=== PATIENT | female | born 1960 | race Caucasian/White ===

== ENCOUNTER 2018-09-06 17:33 | Emergency (ER) | payer MEDICARE ==
[~2018-09-06] VITALS: Ht 10.2 cm; Wt 104.5 kg
[2018-09-06 17:37] VITALS: TEMP 98.2
[2018-09-06 18:25] LABS: ALBUMIN 2.8 gm/dL (3.5-5.0); BILIRUBIN,TOTAL 0.2 mg/dL (0.0-1.0); CALCIUM 8.7 mg/dL (8.4-10.2); CREATININE, serum 1.83 mg/dL (0.52-1.25); POTASSIUM 4.7 mmol/L (3.4-5.0); TOTAL PROTEIN 5.9 gm/dL (6.4-8.2)
[2018-09-06 18:27] LABS: BASO # 0.1 (0.0-0.2); BASO % 0.5 % (0.0-2.0); EOS # 0.7 (0.0-0.7); EOS % 7.3 % (0-4.0); GRAN # 5.8 (1.4-6.5); GRAN % 62.5 % (42.2-75.2); MEAN CELL VOLUME 85 fl (80.0-100.0); MEAN CORPUSCULAR HEMOGLOBIN 28 pg (27.0-31.0); MEAN CORPUSCULAR HGB CONC 32 g/dl (33.0-37.0); MEAN PLATELET VOLUME 10.3 fl (7.4-10.4); MONO # 0.7 (0.1-0.6); MONO % 7.3 % (1.7-9.3); PLATELET COUNT 288 K/mm3 (130-400); REDCELL DISTRIBUTION WIDTH-CV 13.5 % (11.5-14.5)
[2018-09-06 18:29] LABS: HEMATOCRIT 33.9 % (37.0-47.0)
[2018-09-06 18:38] LABS: TROPONIN-I 0.06 ng/mL (0.000-0.034)
[2018-09-06] MEDS ORDERED: LASIX 20MG TABL20 MG PO (20:36)
[2018-09-06] MEDS ORDERED: NEURONTIN300 MG/CAP PO (20:36)
[2018-09-06] MEDS ORDERED: MICRO-K 10 EXT10 MEQ PO (20:36)
[2018-09-06 20:39] VITALS: BP 154/94; PULSE 90
== END 2018-09-06 20:53 | disposition home or self-care (01) ==
LOC: COL.ER 17:33
PROVIDERS: Family Medicine
DX: E11.42 Type 2 diabetes mellitus with diabetic polyneuropathy (principal); R60.9 Edema, unspecified; I25.10 Atherosclerotic heart disease of native coronary artery without angina pectoris; I50.9 Heart failure, unspecified; F17.210 Nicotine dependence, cigarettes, uncomplicated
CPT/HCPCS: J1940

== ENCOUNTER → 2018-12-17 | Outpatient (CLI) | payer MEDICARE, MEDICAID ==
[~2018-12-17] MED LIST: ALBUTEROL1.25 MG/3 IH; ASPIRIN 81M81 MG/TA2 PO; BUMEX 1MG TA1 MG/TA1 PO; COREG 3.123.125 MG/T PO; DESYREL 50MG50 MG PO; DESYREL DIVIDO300 MG PO; DILAUDID8 M1 PO; GLUCOPHAGE1000 MG PO; LAMICTAL 25MG T25 MG PO; LANTUS100 U/ML SQ; LASIX 20MG TABL20 MG PO; LASIX 40MG TABL40 MG PO; LEVEMIR FLEX100 U/ML SQ; LEVEMIR100 U/ML SQ; LIPITOR 40MG TA40 MG PO; MICRO-K 10 EXT10 MEQ PO; MS CONTIN 660 MG/TAB PO; NEURONTIN100 MG/CAP PO; NEURONTIN300 MG/CAP PO; NEURONTIN800 MG/TAB PO; NITROSTAT0.3 MG SL; NOVOLOG 100U100 U/M1 SQ; NUMBONEX30 GM TP; PEPCID40 MG PO; PLAVIX 75MG TAB75 MG PO; PREDNISONE20 MG PO; PROAIR HFA0.09 MG/AC IH; PROTONIX 40MG T40 MG PO; PROZAC40 MG PO; RT SPIRIVA18 MCG IH; SINGULAIR 110 MG/TAB PO; SLEEPING MED; TAMIFLU30 MG PO; THE MEDICINE SH1 DE3 MC; XANAX 1MG1 MG PO
[2018-12-17 18:56] LABS: BASO % 0.5 % (0.0-2.0); EOS # 0.5 (0.0-0.7); EOS % 5.7 % (0-4.0); GRAN # 4.9 (1.4-6.5); GRAN % 62.1 % (42.2-75.2); HEMOGLOBIN 11.2 g/dl (12.5-16.0); LYMPH # 1.9 (1.2-3.4); LYMPH % 23.9 % (20.0-51.0); MEAN CELL VOLUME 86 fl (80.0-100.0); MEAN CORPUSCULAR HEMOGLOBIN 27 pg (27.0-31.0); MEAN CORPUSCULAR HGB CONC 31 g/dl (33.0-37.0); MEAN PLATELET VOLUME 10.6 fl (7.4-10.4); MONO # 0.6 (0.1-0.6); MONO % 7.5 % (1.7-9.3); PLATELET COUNT 267 K/mm3 (130-400); RED BLOOD COUNT 4.14 M/mm3 (4.10-5.30); REDCELL DISTRIBUTION WIDTH-CV 14.1 % (11.5-14.5); RETIC # 0.04 M/mm3 (0.02-0.16); RETIC % 1.1 % (0.5-3.52)
[2018-12-17 18:57] LABS: HEMATOCRIT 35.7 % (37.0-47.0)
[2018-12-17 19:06] LABS: CALCIUM 8.7 mg/dL (8.4-10.2); CREATININE, serum 2.06 mg/dL (0.52-1.25)
== END ==
LOC: COL.LAB 17:52
PROVIDERS: Nurse Practitioner Family
DX: D64.9 Anemia, unspecified (principal); N17.9 Acute kidney failure, unspecified

== ENCOUNTER → 2018-12-17 | Outpatient (CLI) | payer MEDICARE, MEDICAID | LOC: COL.LAB 17:50 | DX: D64.9 Anemia, unspecified (principal); I50.9 Heart failure, unspecified ==

== ENCOUNTER → 2018-12-25 | Outpatient (CLI) | payer MEDICARE, MEDICAID ==
[2018-12-26 13:28] LABS: FOLATE (FOLIC ACID) 3.7 ng/mL (7.0-31.4)
== END ==
LOC: COL.LAB 17:27
PROVIDERS: Family Medicine
DX: D64.9 Anemia, unspecified (principal)

== ENCOUNTER → 2018-12-28 | Outpatient (CLI) | payer MEDICARE, MEDICAID | LOC: COL.RAD 13:54 | DX: N18.3 Chronic kidney disease, stage 3 (moderate) (principal) ==

== ENCOUNTER → 2018-12-31 | Outpatient (CLI) | payer MEDICARE, MEDICAID ==
[~2018-12-31] MED LIST changes: +00186-0370-20 IH; +BUMEX2 MG PO; +FERRO-TIME325 MG PO; +FOLIC ACID 11 MG/TA1 PO
[2018-12-31 22:50] LABS: HEPATITIS C VIRUS ANTIBODY Negative (Negative)
== END ==
LOC: COL.LAB 09:02
PROVIDERS: Internal Medicine
DX: I12.9 Hypertensive chronic kidney disease with stage 1 through stage 4 chronic kidney disease, or unspecified chronic kidney disease (principal); E11.21 Type 2 diabetes mellitus with diabetic nephropathy; N18.3 Chronic kidney disease, stage 3 (moderate); D64.9 Anemia, unspecified

== ENCOUNTER 2019-01-03 20:05 | Inpatient (IN) | payer MEDICARE, MEDICAID ==
[~2019-01-03] VITALS: Ht 160 cm; Wt 97.7 kg
[~2019-01-03 20:05] MED LIST changes: -00186-0370-20 IH; -BUMEX2 MG PO; -FERRO-TIME325 MG PO; -FOLIC ACID 11 MG/TA1 PO
[2019-01-03 21:37] LABS: BASO % 0.5 % (0.0-2.0); EOS # 0.5 (0.0-0.7); EOS % 5.5 % (0-4.0); GRAN # 5.6 (1.4-6.5); GRAN % 65.2 % (42.2-75.2); HEMOGLOBIN 10.2 g/dl (12.5-16.0); LYMPH # 1.6 (1.2-3.4); LYMPH % 18.8 % (20.0-51.0); MEAN CELL VOLUME 86 fl (80.0-100.0); MEAN CORPUSCULAR HEMOGLOBIN 28 pg (27.0-31.0); MEAN CORPUSCULAR HGB CONC 33 g/dl (33.0-37.0); MEAN PLATELET VOLUME 10.4 fl (7.4-10.4); MONO # 0.8 (0.1-0.6); MONO % 9.5 % (1.7-9.3); PLATELET COUNT 275 K/mm3 (130-400); RED BLOOD COUNT 3.65 M/mm3 (4.10-5.30); REDCELL DISTRIBUTION WIDTH-CV 14.2 % (11.5-14.5)
[2019-01-03 21:40] LABS: HEMATOCRIT 31.3 % (37.0-47.0)
[2019-01-03] MEDS ORDERED: BUMEX2 MG PO (21:48)
[2019-01-03 21:50] LABS: ALANINE AMINOTRANSFERASE 20 U/L (9-52); ALBUMIN 2.7 gm/dL (3.5-5.0); ALKALINE PHOSPHATASE 97 U/L (50-136); ANION GAP 3 mmol/L (7-16); AST,SGOT 23 U/L (15-37); BILIRUBIN,TOTAL 0.1 mg/dL (0.0-1.0); BLOOD UREA NITROGEN 34 mg/dL (7-17); CALCIUM 8.2 mg/dL (8.4-10.2); CARBON DIOXIDE 23 mmol/L (22-30); CHLORIDE 110 mmol/L (98-107); CREATININE, serum 2.17 (0.52-1.25); GLUCOSE 176 mg/dL (74-106); POTASSIUM 4.6 mmol/L (3.4-5.0); SODIUM 135 mmol/L (137-145); TOTAL PROTEIN 5.5 gm/dL (6.4-8.2)
[2019-01-03 21:51] LABS: C-REACTIVE PROTEIN < 0.5 mg/dL (0.0-0.9)
[2019-01-03] MEDS ORDERED: NOVOLOG 100U100 U/M1 SQ (21:55)
[2019-01-03] MEDS ORDERED: FERRO-TIME325 MG PO (21:55)
[2019-01-03] MEDS ORDERED: FOLIC ACID 11 MG/TA1 PO (21:55)
[2019-01-03 22:04] LABS: TROPONIN-I 0.053 ng/mL (0.000-0.035)
[2019-01-03 23:06] LABS: COLLECTION METHOD CLEAN CATCH
[2019-01-03 23:16] LABS: HYALINE CAST >12 /lpf; MUCOUS Present /lpf; PH 6 (5-8); SQUAMOUS EPITHELIAL 0-2 /hpf; URINE APPEARANCE Clear; URINE BACTERIA None Seen /hpf; URINE BILIRUBIN Negative (NEGATIVE); URINE BLOOD Negative (NEGATIVE); URINE COLOR Yellow; URINE GLUCOSE 3+ (NEGATIVE); URINE KETONE Negative (NEGATIVE); URINE LEUKOCYTE ESTERASE Negative (NEGATIVE); URINE NITRATE Negative (NEGATIVE); URINE PROTEIN(semi-quant) 3+ (NEGATIVE); URINE UROBILINOGEN Negative (NEGATIVE)
[2019-01-04] VITALS (7 sets, daily range): BP systolic 136–159; BP diastolic 71–102; PULSE 70–93; TEMP 97.8–98.9
--- NOTE | 2019-01-04 02:20 | NUR ---
PT C/O 05/07 DULL CHRONIC PAIN IN LOW BACK. PT HAS 3+ PITTING EDEMA IN BILAT LOWER LEGS. PT DENIES CP AND SOB AT THIS TIME.
[2019-01-04] MEDS ORDERED: 00186-0370-20 IH (03:13)
[2019-01-04 05:14] LABS: BASO % 0.5 % (0.0-2.0); EOS # 0.4 (0.0-0.7); EOS % 5.2 % (0-4.0); GRAN # 4.5 (1.4-6.5); GRAN % 59.7 % (42.2-75.2); HEMATOCRIT 29.1 % (37.0-47.0); HEMOGLOBIN 9.1 g/dl (12.5-16.0); LYMPH # 1.9 (1.2-3.4); LYMPH % 25.3 % (20.0-51.0); MEAN CELL VOLUME 87 fl (80.0-100.0); MEAN CORPUSCULAR HEMOGLOBIN 27 pg (27.0-31.0); MEAN CORPUSCULAR HGB CONC 31 g/dl (33.0-37.0); MEAN PLATELET VOLUME 10.4 fl (7.4-10.4); MONO # 0.7 (0.1-0.6); PLATELET COUNT 252 K/mm3 (130-400); RED BLOOD COUNT 3.33 M/mm3 (4.10-5.30); REDCELL DISTRIBUTION WIDTH-CV 14.2 % (11.5-14.5)
--- NOTE | 2019-01-04 05:24 | NUR ---
INFROMED HOSPITALIST OF PT C/O RUQ ABD TENDERNESS. INFORMED BY HOSPITALIST RONDA TO MONITOR.
[2019-01-04 05:27] LABS: CALCIUM 8.3 mg/dL (8.4-10.2); CREATININE, serum 2.21 (0.52-1.25); POTASSIUM 4.5 mmol/L (3.4-5.0)
[2019-01-04 05:39] LABS: TROPONIN-I 0.041 ng/mL (0.000-0.035)
--- NOTE | 2019-01-04 07:20 | NUR ---
Report recieved from GITA Darling. Patient sleeps between disturbances. Nitro gtt verified to run at 20mcg/min to peripheral IV. Viramontes catheter with positive output noted. Bed in low and locked position, call light within reach, rails up x3, bed alarm armed. Care assumed at this time.
--- NOTE | 2019-01-04 13:27 | NUR ---
Patient family at bedside encouraging patient to eat. Patient continues to refuse food and asks for additional ice chips. These are provided in small quantity and fluid restriction reinforced.
--- NOTE | 2019-01-04 14:12 | NUR ---
Dr. Badillo rounds at this time. POC dicussed to include transfer to medical floor.
--- NOTE | 2019-01-04 14:45 | NUR ---
KAREEN and KAREEN attended clinical rounds. The hospitalist discussed post-acute rehab, due to the patient having increased falls. KAREEN and KAREEN student then followed up with the patient, patient's son (Jomar), and her [id number] (Funmilayo). The patient's daughter, Courtney, was on speaker phone. The patient lives in [place] with her daughter, Courtney. She reports needing assistance with ADLs when she has swelling. She has a cane and walker. The patient reports that Courtney is able to provide that assistance. The patient's son and [id number] report that they also help take care of the patient, when Courtney is working. The patient also has home health services through [facility]. SW contacted [facility] at [facility] and confirmed that the patient has senior care and PT through them. The patient's PCP is Dr. Ze Rivera and she receives her medications at the [facility]. The patient's son reports that the patient does not have difficulties affording her meds, but that they have difficulties remembering or knowing when to go pick them up. KAREEN discussed [facility] service of calling patient's when their prescriptions are ready or the option of changing the phone number to her daughters. The patient's DPOA-HC is in EMR. KAREEN then discussed the hospitalist's and physical therapies recommendation of post-acute rehab. The patient did not appear happy about this option, but was agreeable. KAREEN discussed post-acute rehab options in the [facility] area. The patient and her family report that they would like the rest of the day to think about the options and then will inform SW what they prefer. The patient is to transfer up to the medical floor today, 01/04. SW will need to follow up with the patient and her family on preference for rehab.
--- NOTE | 2019-01-04 20:00 | NUR ---
PT C/O CHRONIC LOW BACK PAIN RATING 8/10 DESCRIBED DULL ACHE. PT DROWSY, BUT DOES EASILY WAKE TO NAME. PT HAS EQUAL MORTICIAN INVESTIGATOR STRENGTH, BUT DOES HAVE SOME TREMOR IN BILAT ARMS.
[2019-01-05] VITALS: BP 155/100; PULSE 74
[2019-01-05 04:00] VITALS: BP 149/76; PULSE 80
[2019-01-05 05:41] LABS: BASO % 0.5 % (0.0-2.0); EOS # 0.3 (0.0-0.7); EOS % 3.9 % (0-4.0); GRAN # 4.7 (1.4-6.5); GRAN % 62.9 % (42.2-75.2); LYMPH # 1.8 (1.2-3.4); LYMPH % 24.4 % (20.0-51.0); MEAN CELL VOLUME 87 fl (80.0-100.0); MEAN CORPUSCULAR HGB CONC 31 g/dl (33.0-37.0); MEAN PLATELET VOLUME 10.6 fl (7.4-10.4); MONO # 0.6 (0.1-0.6); PLATELET COUNT 249 K/mm3 (130-400); RED BLOOD COUNT 3.56 M/mm3 (4.10-5.30); REDCELL DISTRIBUTION WIDTH-CV 14.1 % (11.5-14.5)
[2019-01-05 05:42] LABS: HEMOGLOBIN 9.7 g/dl (12.5-16.0); MEAN CORPUSCULAR HEMOGLOBIN 27 pg (27.0-31.0)
[2019-01-05 05:55] LABS: CALCIUM 8.7 mg/dL (8.4-10.2); MAGNESIUM 1.7 mg/dL (1.6-2.3); POTASSIUM 4.4 mmol/L (3.4-5.0)
[2019-01-05 09:39] VITALS: BP 164/80; PULSE 80; TEMP 97.5
--- NOTE | 2019-01-05 09:42 | NUR ---
Patient up to chair this AM without difficultly. Gait steady with one stand by assist. Patient is alert and oriented x 3. Denies any pain other than her usual chronic back pain. No noted shortness of air. Lungs essentially clear with a few fine crackles in RLL. No cough noted. Patient sats in the upper 80's/Low 90%. But no distress noted. C/O the swelling in her hands. Noted 2+ edema bilaterally. PPP. Thigh High chaim hose in place. Noted 2+ bilateral lower edema.
--- NOTE | 2019-01-05 10:15 | NUR ---
Patient falling to sleep in chair. Noted that 02 sats drop to the mid 80's when sleeping. Questioned patient if she had C-Pap at home. Patient stated that she had a C-Pap in [place] but when she was non-compliant (due to be homeless) she lost the use of the C-Pap. Patient placed on 1L/NC and 02 sats increased to low 90's. Reported to Dr. Badillo the above concern.
--- NOTE | 2019-01-05 12:22 | NUR ---
First visit from the admissions director. No needs right now.
[2019-01-05 12:55] VITALS: BP 125/66; PULSE 68; TEMP 98
--- NOTE | 2019-01-05 12:55 | NUR ---
KAREEN garcia attended clinical rounding and then followed up with patient on a preference for post-acute rehab. KAREEN garcia presented and explained the patient choice form. The patient preferred 1) [facility] and then [facility] or [facility] for a second preference. The patient signed and she declined a copy. KAREEN garcia faxed a referral to all three facilities. SW awaiting their screenings.
--- NOTE | 2019-01-05 14:36 | NUR ---
Patient visitiing with family member at this time. 02 sats 96% on 1L/NC. Patient denies any needs at this time
--- NOTE | 2019-01-05 14:44 | NUR ---
Patient up in the hallway ambulating with PT/walker and her 02.
--- NOTE | 2019-01-05 14:57 | NUR ---
Dr. Stephen called and made aware of consult ordered by Dr. Badillo secondary to nephrotic syndrome
--- NOTE | 2019-01-05 15:15 | NUR ---
Physical Therapy contacted KAREEN to inform that the patient would like to speak with KAREEN. KAREEN and KAREEN student then met with the patient and patient's son. The patient reports that she has switched her first preference for post-acute rehab to 1) [facility] and then 2) [facility]. Alma Rosa, at [facility], then contacted KAREEN and reports that they are unable to accept the patient. KAREEN will need to inform the patient and continue to follow.
[2019-01-05 16:00] VITALS: BP 150/72; PULSE 70; TEMP 97.4
[2019-01-05 17:08] LABS: ALBUMIN 2.4 gm/dL (3.5-5.0); BILIRUBIN,TOTAL 0.2 mg/dL (0.0-1.0); CALCIUM 8.7 mg/dL (8.4-10.2); CREATININE, serum 1.97 (0.52-1.25); POTASSIUM 4.4 mmol/L (3.4-5.0); TOTAL PROTEIN 5.2 gm/dL (6.4-8.2)
[2019-01-05 20:00] VITALS: BP 152/82; PULSE 76; TEMP 98.1
--- NOTE | 2019-01-05 21:00 | NUR ---
PT AWAKE, A&O X3. PT C/O CHRONIC BACK PAIN DESCRIBED AN ACHE RATING 8/10. KIRBY HOSE REMOVED FROM BILAT LEGS, PT STATING THE ELASTIC IS BOTHERSOME. WHEN REPLACING, WILL ATTEMPT ONE SIZE BIGGER KIRBY HOSE.
[2019-01-06] VITALS: BP 166/88; PULSE 79
--- NOTE | 2019-01-06 01:00 | NUR ---
SIZE LARGE REGULAR THIGH-HIGH KIRBY HOSE PLACED ON PT.
[2019-01-06 04:00] VITALS: BP 131/62; BP 141/74; PULSE 68; PULSE 70
[2019-01-06 05:44] LABS: CALCIUM 8.9 mg/dL (8.4-10.2); CREATININE, serum 1.81 (0.52-1.25); MAGNESIUM 1.8 mg/dL (1.6-2.3); POTASSIUM 4.6 mmol/L (3.4-5.0)
[2019-01-06 08:00] VITALS: BP 170/86; PULSE 72; TEMP 97.5
--- NOTE | 2019-01-06 09:31 | NUR ---
Kenneth, at [facility], reports that they can accept the patient for a skilled stay, but that the patient would have a co-pay of $170.50 on the day. KAREEN and SW student met with the patient to update on the referrals. The patient reports that she is agreeable to transfer to [facility] upon discharge and verbalized understanding of the co-pay. The patient requested that SW contact and update her daughter, Courtney. SW contacted and updated her daughter. The patient is to transfer up to the medical floor today, 01/06. SW to continue to follow.
--- NOTE | 2019-01-06 09:45 | NUR ---
PATIENT ARRIVED TO ROOM 314 VIA WHEELCHAIR FROM ICU. DEANNA TRANSFERRED.
--- NOTE | 2019-01-06 09:45 | NUR ---
REPORT CALLED TO ROBB PELAYO ON MEDICAL FLOOR. PT TRANSFERRED VIA WHEELCHAIR TO ROOM 314 BY RUFUS STUDENT NURSE. PT'S BELONGINGS TRANSFERRED WITH PATIENT.
[2019-01-06 11:56] VITALS: BP 146/62; PULSE 68; TEMP 98.4
[2019-01-06 15:24] VITALS: BP 138/60; PULSE 72; TEMP 98.5
[2019-01-06 17:51] LABS: URINE PROTEIN:CREAT RATIO 13.55 (0.00-0.14)
[2019-01-06 18:31] LABS: PARTIAL THROMBOPLASTIN TIME 38.5 SECONDS (26.0-37.0)
--- NOTE | 2019-01-06 19:30 | NUR ---
END OF SHIFT NOTE. AGREE WITH ICU NURSE ASSESSMENT. PATIENT HAS BEEN DROWSY AND NAPPING THIS AFTERNOON. PATIENT REFUSED LUNCH AND DINNER. AFTERNOON INSULIN HELD. PATIENT GIVEN APPLE JUICE WITH EVENING DOSE OF INSULIN. PATIENT REPORTS BACK PAIN A 6-8 ON A 0-10 SCALE THROUGHOUT THE SHIFT BUT DENIES THE NEED FOR PAIN MEDICATION. CALL LIGHT WITHIN REACH. REPORT GIVEN TO GITA JOSÉ.
[2019-01-06 19:38] VITALS: BP 134/66; PULSE 75; TEMP 98.5
[2019-01-07] VITALS (25 sets, daily range): BP systolic 109–148; BP diastolic 56–80; PULSE 56–72; TEMP 98–98.8
--- NOTE | 2019-01-07 06:34 | NUR ---
PT HAD UNEVENTFUL NOC. NO ISSUES OR CONSERNS VOICED OVER NIGHT. APPEARED TO HAVE SLEPT WELL
[2019-01-07 07:06] LABS: BASO % 0.3 % (0.0-2.0); EOS # 0.2 (0.0-0.7); EOS % 3.1 % (0-4.0); GRAN # 4.7 (1.4-6.5); GRAN % 61.5 % (42.2-75.2); LYMPH % 26.2 % (20.0-51.0); MEAN CELL VOLUME 86 fl (80.0-100.0); MEAN CORPUSCULAR HGB CONC 32 g/dl (33.0-37.0); MEAN PLATELET VOLUME 10.6 fl (7.4-10.4); MONO # 0.7 (0.1-0.6); MONO % 8.6 % (1.7-9.3); PLATELET COUNT 257 K/mm3 (130-400); RED BLOOD COUNT 3.63 M/mm3 (4.10-5.30); REDCELL DISTRIBUTION WIDTH-CV 13.9 % (11.5-14.5)
[2019-01-07 07:16] LABS: HEMATOCRIT 31.2 % (37.0-47.0); HEMOGLOBIN 9.9 g/dl (12.5-16.0); MEAN CORPUSCULAR HEMOGLOBIN 27 pg (27.0-31.0)
[2019-01-07 07:26] LABS: CALCIUM 8.5 mg/dL (8.4-10.2); CREATININE, serum 1.87 (0.52-1.25); MAGNESIUM 1.8 mg/dL (1.6-2.3); POTASSIUM 4.6 mmol/L (3.4-5.0)
--- NOTE | 2019-01-07 10:04 | NUR ---
found pt resting in bed. A&OX4, reported less than usuall pain at a 6 out of 10 on a numeric scale. pt is NPO due to upcoming kidney biopsy.
--- NOTE | 2019-01-07 11:03 | NUR ---
KAREEN updated chloe at [facility] that plan is for patient to dc tomorrow. Updates faxed.
--- NOTE | 2019-01-07 12:15 | NUR ---
Pt stable this am. Pt alert and oriented. Pt has chronic pain and denies need for pain med. Pt NPO for renal biopsy. Pt on telemetry and normal sinus. Pt has jeffrey cath patent and adequate clear yellow output. Pt am assess completed. Pt had [facility] student assisting this am. Pt has call light in reach and denies needs. BS monitored.
[2019-01-07] MEDS ORDERED: ASPIRIN E.C. 8181 MG PO (12:18)
--- NOTE | 2019-01-07 13:44 | NUR ---
Primary nurse was assisted with [phone] patient care by [employer] student Harvey Kraus and [employer] instructor Kimberly Holloway RN-BC.
--- NOTE | 2019-01-07 14:56 | NUR ---
CT guided kidney biopsy completed. Versed 1mg & Fentanyl 25mcg given intra-procedure. Patient tolerated well. Patient returned to room. Bed alarm on. Report called to Jody.
[2019-01-07 16:51] LABS: HEPATITIS B SURFACE ANTIBODY 4.9 (()); HEPATITIS B SURFACE ANTIGEN Negative (Negative)
[2019-01-07 18:44] LABS: COMPLEMENT-C3 134 mg/dL (79-152); COMPLEMENT-C4 38 mg/dL (18-55)
--- NOTE | 2019-01-07 19:00 | NUR ---
Pt went to procedure around 1400. CT called and jeffrey bag was leaking so bag was changed and no leak noted. Pt then returned to unit around 1500. Pt to lay flat no more than 30 degrees HOB elevated for 6 hours and nurse to follow Dr. Greco post biopsy protocol. Pt was drowsy but alert to voice and alert and oriented. Pt on 2L oxygen via nasal cannula. Post op vitals taken and urine colllected. Pt tolerated sips of water and then ordered a sandwich and tolerated without issue. Pt remains on bedrest until 2100. Pt has call light inreach and denies needs. PT report givne to Kaur PELAYO.
--- NOTE | 2019-01-07 23:00 | NUR ---
PT LAID IN FLAT POSITION WITH HOB BELOW 30 DEGREES UNTIL THIS TIME. PT WAS ASSISTED TO SIT UP IN BED UP TO APPROX 45 DEGREES AT THIS TIME TO TAKE MEDICATIONS. NO C/O PAIN. BANDAGE ON BACK REMAINS CDI WHERE RENAL BX WAS PERFORMED. URINE RACKED AND IN BATHROOM. PT REMAINS ON 02 SINCE PROCEDURE, SATS 96%. NO NOTED N/V/D. NO ISSUES OR CONSER VOICED.
[2019-01-07 23:25] LABS: C-ANCA 3 U/mL (0-99)
[2019-01-08 00:18] VITALS: BP 123/64; PULSE 63; TEMP 98.4
--- NOTE | 2019-01-08 01:57 | NUR ---
Report received from GITA Dietrich. Patient asleep in room. Kaur in room collecting urine samples at this time from jeffrey catheter.
[2019-01-08 04:53] VITALS: BP 112/62; PULSE 58; TEMP 98.2
--- NOTE | 2019-01-08 05:05 | NUR ---
Pt slept fo rmost of the night. Urine being collected from jeffrey, strict I/O's. VSS. No needs at this time.
[2019-01-08 06:29] LABS: BASO % 0.4 % (0.0-2.0); EOS # 0.2 (0.0-0.7); EOS % 2.9 % (0-4.0); GRAN # 5.3 (1.4-6.5); GRAN % 64.5 % (42.2-75.2); LYMPH # 1.9 (1.2-3.4); LYMPH % 23.3 % (20.0-51.0); MEAN CELL VOLUME 87 fl (80.0-100.0); MEAN CORPUSCULAR HGB CONC 32 g/dl (33.0-37.0); MEAN PLATELET VOLUME 10.9 fl (7.4-10.4); MONO # 0.7 (0.1-0.6); MONO % 8.7 % (1.7-9.3); PLATELET COUNT 253 K/mm3 (130-400); RED BLOOD COUNT 3.48 M/mm3 (4.10-5.30)
[2019-01-08 06:30] LABS: HEMOGLOBIN 9.6 g/dl (12.5-16.0); MEAN CORPUSCULAR HEMOGLOBIN 28 pg (27.0-31.0)
[2019-01-08 06:31] LABS: HEMATOCRIT 30.2 % (37.0-47.0)
[2019-01-08 06:43] LABS: CALCIUM 8.6 mg/dL (8.4-10.2); CREATININE, serum 2.03 (0.52-1.25); POTASSIUM 4.7 mmol/L (3.4-5.0)
--- NOTE | 2019-01-08 06:50 | NUR ---
Received report, patient currently resting with eyes closed on left side. Call light is within reach.
[2019-01-08 07:21] VITALS: BP 110/60; PULSE 60; TEMP 98.5
--- NOTE | 2019-01-08 07:21 | NUR ---
REPORT GIVEN TO GITA ISAAC
[2019-01-08] MEDS ORDERED: ZESTRIL 5MG5 MG PO (08:35)
[2019-01-08] MEDS ORDERED: COREG12.5 MG PO (08:35)
[2019-01-08] MEDS ORDERED: BUMEX2 MG PO (10:41)
[2019-01-08] MEDS ORDERED: NOVOLOG FLEX100 U/ML SQ (10:42)
[2019-01-08 11:56] VITALS: BP 121/58; PULSE 56; TEMP 98
--- NOTE | 2019-01-08 16:54 | NUR ---
Patient discharged to [facility] for rehabilitation. All personal items sent with patient. Discharged via wheelchair and facility staff. Report called to
== END 2019-01-08 16:30 | DRG 698 ==
LOC: COL.ER 20:05 → ICU 22:36 → MEDICAL 01-06 09:46
PROVIDERS: Emergency Medicine; Internal Medicine Nephrology; Nurse Practitioner; Nurse Practitioner Family; Physician Assistant; ADMIT Hospitalist
PROC: 0T913ZX Drainage of Left Kidney, Percutaneous Approach, Diagnostic (ICD-10-PCS; principal; 2019-01-07)
DX: E11.21 Type 2 diabetes mellitus with diabetic nephropathy (principal); I50.33 Acute on chronic diastolic (congestive) heart failure; J96.01 Acute respiratory failure with hypoxia; I13.0 Hypertensive heart and chronic kidney disease with heart failure and stage 1 through stage 4 chronic kidney disease, or unspecified chronic kidney disease; Z68.41 Body mass index [BMI] 40.0-44.9, adult; N04.9 Nephrotic syndrome with unspecified morphologic changes; N18.3 Chronic kidney disease, stage 3 (moderate); I25.10 Atherosclerotic heart disease of native coronary artery without angina pectoris; Z95.5 Presence of coronary angioplasty implant and graft; E11.22 Type 2 diabetes mellitus with diabetic chronic kidney disease; E11.42 Type 2 diabetes mellitus with diabetic polyneuropathy; J44.9 Chronic obstructive pulmonary disease, unspecified; F31.9 Bipolar disorder, unspecified; F41.8 Other specified anxiety disorders; Z91.81 History of falling; Z79.4 Long term (current) use of insulin; Z87.891 Personal history of nicotine dependence; D50.9 Iron deficiency anemia, unspecified; E66.9 Obesity, unspecified
CPT/HCPCS: 99223-AI; 99232-AI; 99239; J1644; J1815; J1940; J2250; J3010

== ENCOUNTER → 2019-01-11 | Outpatient (REF) ==
[~2019-01-11] MED LIST changes: +00186-0370-20 IH; +ASPIRIN E.C. 8181 MG PO; +BUMEX2 MG PO; +COREG12.5 MG PO; +FERRO-TIME325 MG PO; +FOLIC ACID 11 MG/TA1 PO; +NOVOLOG FLEX100 U/ML SQ; +ZESTRIL 5MG5 MG PO
[2019-01-11 11:30] LABS: BASO % 0.5 % (0.0-2.0); EOS # 0.3 (0.0-0.7); EOS % 3.5 % (0-4.0); GRAN % 68.1 % (42.2-75.2); LYMPH # 1.7 (1.2-3.4); LYMPH % 18.9 % (20.0-51.0); MEAN CELL VOLUME 88 fl (80.0-100.0); MEAN CORPUSCULAR HGB CONC 31 g/dl (33.0-37.0); MEAN PLATELET VOLUME 11.7 fl (7.4-10.4); MONO # 0.8 (0.1-0.6); MONO % 8.5 % (1.7-9.3); PLATELET COUNT 217 K/mm3 (130-400); RED BLOOD COUNT 3.38 M/mm3 (4.10-5.30)
[2019-01-11 11:31] LABS: HEMATOCRIT 29.6 % (37.0-47.0); HEMOGLOBIN 9.3 g/dl (12.5-16.0); MEAN CORPUSCULAR HEMOGLOBIN 28 pg (27.0-31.0)
[2019-01-11 11:38] LABS: ALANINE AMINOTRANSFERASE 22 U/L (9-52); ALBUMIN 2.2 gm/dL (3.5-5.0); ALKALINE PHOSPHATASE 82 U/L (50-136); ANION GAP 4 mmol/L (7-16); AST,SGOT 18 U/L (15-37); BILIRUBIN,TOTAL < 0.1 mg/dL (0.0-1.0); BLOOD UREA NITROGEN 50 mg/dL (7-17); CALCIUM 8.3 mg/dL (8.4-10.2); CARBON DIOXIDE 30 mmol/L (22-30); CHLORIDE 102 mmol/L (98-107); CREATININE, serum 2.05 (0.52-1.25); GLUCOSE 162 mg/dL (74-106); POTASSIUM 4.9 mmol/L (3.4-5.0); SODIUM 136 mmol/L (137-145); TOTAL PROTEIN 4.6 gm/dL (6.4-8.2)
== END ==
LOC: ZCOL.LAB 11:22
PROVIDERS: Family Medicine
DX: D50.9 Iron deficiency anemia, unspecified (principal); I50.33 Acute on chronic diastolic (congestive) heart failure

== ENCOUNTER 2019-01-17 11:59 | Emergency (ER) | payer MEDICARE, MEDICAID ==
[~2019-01-17] VITALS: Ht 160 cm; Wt 95.5 kg
[2019-01-17 12:05] VITALS: TEMP 98.3
[2019-01-17 12:34] LABS: ALANINE AMINOTRANSFERASE 15 U/L (9-52); ALBUMIN 3.1 gm/dL (3.5-5.0); ALKALINE PHOSPHATASE 87 U/L (50-136); ANION GAP 6 mmol/L (7-16); AST,SGOT 28 U/L (15-37); BILIRUBIN,TOTAL 0.2 mg/dL (0.0-1.0); BLOOD UREA NITROGEN 52 mg/dL (7-17); CALCIUM 8.9 mg/dL (8.4-10.2); CARBON DIOXIDE 27 mmol/L (22-30); CHLORIDE 103 mmol/L (98-107); CREATININE, serum 2.66 (0.52-1.25); GLUCOSE 136 mg/dL (74-106); LIPASE 93 U/L (23-300); POTASSIUM 5.6 mmol/L (3.4-5.0); SODIUM 136 mmol/L (137-145); TOTAL PROTEIN 6.2 gm/dL (6.4-8.2)
[2019-01-17 12:38] LABS: BASO # 0.1 (0.0-0.2); BASO % 0.7 % (0.0-2.0); EOS # 0.6 (0.0-0.7); EOS % 6.6 % (0-4.0); GRAN # 5.2 (1.4-6.5); GRAN % 62.9 % (42.2-75.2); HEMOGLOBIN 10.2 g/dl (12.5-16.0); LYMPH # 1.7 (1.2-3.4); LYMPH % 20.9 % (20.0-51.0); MEAN CELL VOLUME 86 fl (80.0-100.0); MEAN CORPUSCULAR HEMOGLOBIN 28 pg (27.0-31.0); MEAN CORPUSCULAR HGB CONC 32 g/dl (33.0-37.0); MEAN PLATELET VOLUME 11.2 fl (7.4-10.4); MONO # 0.7 (0.1-0.6); MONO % 8.7 % (1.7-9.3); PLATELET COUNT 239 K/mm3 (130-400); RED BLOOD COUNT 3.71 M/mm3 (4.10-5.30); REDCELL DISTRIBUTION WIDTH-CV 13.7 % (11.5-14.5)
[2019-01-17 12:42] LABS: HEMATOCRIT 31.8 % (37.0-47.0)
[2019-01-17 12:48] LABS: TROPONIN-I < 0.012 ng/mL (0.000-0.035)
[2019-01-17] MEDS ORDERED: PRINIVIL2.5 MG PO (14:02)
[2019-01-17] MEDS ORDERED: PLAVIX 75MG TAB75 MG PO (14:02)
[2019-01-17] MEDS ORDERED: ASPIRIN E.C. 8181 MG PO (14:03)
[2019-01-17] MEDS ORDERED: COREG 3.123.125 MG/T PO (14:04)
[2019-01-17] MEDS ORDERED: DEXILANT60 MG PO (14:04)
[2019-01-17 16:35] VITALS: BP 160/76; PULSE 75
== END 2019-01-17 16:38 | disposition home or self-care (01) ==
LOC: COL.ER 11:59
PROVIDERS: Emergency Medicine
DX: R07.89 Other chest pain (principal); I10 Essential (primary) hypertension; E11.9 Type 2 diabetes mellitus without complications; I25.10 Atherosclerotic heart disease of native coronary artery without angina pectoris; J44.9 Chronic obstructive pulmonary disease, unspecified; F31.9 Bipolar disorder, unspecified; I50.9 Heart failure, unspecified; Z95.5 Presence of coronary angioplasty implant and graft

== ENCOUNTER → 2019-01-18 | Outpatient (REF) ==
[~2019-01-18] MED LIST changes: +DEXILANT60 MG PO; +PRINIVIL2.5 MG PO
[2019-01-18 15:23] LABS: CALCIUM 9.1 mg/dL (8.4-10.2); CREATININE, serum 2.69 (0.52-1.25); POTASSIUM 5.3 mmol/L (3.4-5.0)
== END ==
LOC: ZCOL.LAB 14:57
PROVIDERS: Family Medicine
DX: I13.0 Hypertensive heart and chronic kidney disease with heart failure and stage 1 through stage 4 chronic kidney disease, or unspecified chronic kidney disease (principal); N18.9 Chronic kidney disease, unspecified

== ENCOUNTER → 2019-01-20 | Outpatient (REF) ==
[2019-01-20 18:02] LABS: CREATININE, serum 2.71 (0.52-1.25); POTASSIUM 4.5 mmol/L (3.4-5.0)
[2019-01-20 18:14] LABS: TROPONIN-I 0.017 ng/mL (0.000-0.035)
== END ==
LOC: ZCOL.LAB 17:47
PROVIDERS: Family Medicine
DX: I13.10 Hypertensive heart and chronic kidney disease without heart failure, with stage 1 through stage 4 chronic kidney disease, or unspecified chronic kidney disease (principal); N18.9 Chronic kidney disease, unspecified

== ENCOUNTER → 2019-03-01 | Outpatient (CLI) | payer MEDICARE, MEDICAID ==
[2019-03-01 15:44] LABS: HEMATOCRIT 29.8 % (37.0-47.0); HEMOGLOBIN 9.5 g/dl (12.5-16.0)
[2019-03-01 16:00] LABS: CALCIUM 8.7 mg/dL (8.4-10.2); CREATININE, serum 2.43 (0.52-1.25)
[2019-03-01 16:08] LABS: POTASSIUM 5.9 mmol/L (3.4-5.0)
== END ==
LOC: COL.LAB 14:59
PROVIDERS: Internal Medicine
DX: I12.9 Hypertensive chronic kidney disease with stage 1 through stage 4 chronic kidney disease, or unspecified chronic kidney disease (principal); N18.3 Chronic kidney disease, stage 3 (moderate); D64.9 Anemia, unspecified

== ENCOUNTER → 2019-03-15 | Outpatient (CLI) | payer MEDICARE, MEDICAID | LOC: MHCPAIN 14:34 | DX: G89.29 Other chronic pain (principal); M47.817 Spondylosis without myelopathy or radiculopathy, lumbosacral region; M54.16 Radiculopathy, lumbar region; M53.3 Sacrococcygeal disorders, not elsewhere classified; M96.1 Postlaminectomy syndrome, not elsewhere classified; M50.90 Cervical disc disorder, unspecified, unspecified cervical region | CPT/HCPCS: G0463 ==

== ENCOUNTER 2019-04-05 16:53 | Inpatient (IN) | payer MEDICARE, MEDICAID ==
[~2019-04-05] VITALS: Ht 160 cm; Wt 97.6 kg
[2019-04-05 17:08] VITALS: BP 167/83; PULSE 89; TEMP 98
[2019-04-05] MEDS ORDERED: ALBUTEROL0.83 MG/ML IH (17:26)
[2019-04-05] MEDS ORDERED: PROAIR HFA0.09 MG/AC IH (17:30)
[2019-04-05] MEDS ORDERED: NEURONTIN100 MG/CAP PO (17:33)
--- NOTE | 2019-04-05 18:00 | NUR ---
Received pt to floor, 20g to LF started. No redness or swelling noted. C/O pain 6/10 to her flank. Edema noted in lower legs. Breath sounds diminished, shortness of breath noted. On 1L NC, 95% on 02. Assessment completed, med rec completed. Bedros notified of consult. Denies wanting any dinner. Will contiue to monitor. Call light in reach.
[2019-04-05 19:18] VITALS: BP 157/100; PULSE 90; TEMP 98
[2019-04-05 19:24] LABS: BASO # 0.1 (0.0-0.2); BASO % 0.6 % (0.0-2.0); EOS # 0.8 (0.0-0.7); EOS % 8.7 % (0-4.0); GRAN # 5.9 (1.4-6.5); GRAN % 63.5 % (42.2-75.2); LYMPH # 1.7 (1.2-3.4); LYMPH % 18.1 % (20.0-51.0); MEAN CELL VOLUME 88 fl (80.0-100.0); MEAN CORPUSCULAR HGB CONC 32 g/dl (33.0-37.0); MEAN PLATELET VOLUME 10.2 fl (7.4-10.4); MONO # 0.8 (0.1-0.6); MONO % 8.7 % (1.7-9.3); PLATELET COUNT 247 K/mm3 (130-400); RED BLOOD COUNT 3.25 M/mm3 (4.10-5.30)
--- NOTE | 2019-04-05 19:25 | NUR ---
Collected urine sample. Report given to Sherice PELAYO.
[2019-04-05 19:30] LABS: HEMATOCRIT 28.7 % (37.0-47.0); HEMOGLOBIN 9.1 g/dl (12.5-16.0); MEAN CORPUSCULAR HEMOGLOBIN 28 pg (27.0-31.0)
[2019-04-05 19:35] LABS: INR 0.9 (0.8-3.0); PROTHROMBIN TIME 10.1 SECONDS (9.7-12.8)
[2019-04-05 19:38] LABS: COLLECTION METHOD CLEAN CATCH
[2019-04-05 19:43] LABS: ALBUMIN 2.7 gm/dL (3.5-5.0); BILIRUBIN,TOTAL 0.2 mg/dL (0.0-1.0); CALCIUM 8.4 mg/dL (8.4-10.2); CREATININE, serum 2.3 (0.52-1.25); MAGNESIUM 1.9 mg/dL (1.6-2.3); PHOSPHOROUS 5.7 mg/dL (2.5-4.5); POTASSIUM 5.1 mmol/L (3.4-5.0); TOTAL PROTEIN 5.7 gm/dL (6.4-8.2)
[2019-04-05 19:49] LABS: MUCOUS Present /lpf; PH 6 (5-8); SQUAMOUS EPITHELIAL None Seen /hpf; URINE APPEARANCE Clear; URINE BACTERIA None Seen /hpf; URINE BILIRUBIN Negative (NEGATIVE); URINE BLOOD 1+ (NEGATIVE); URINE COLOR Yellow; URINE GLUCOSE 3+ (NEGATIVE); URINE KETONE Negative (NEGATIVE); URINE LEUKOCYTE ESTERASE Negative (NEGATIVE); URINE NITRATE Negative (NEGATIVE); URINE PROTEIN(semi-quant) 3+ (NEGATIVE); URINE UROBILINOGEN Negative (NEGATIVE)
[2019-04-05 20:01] LABS: TROPONIN-I 0.046 ng/mL (0.000-0.035)
--- NOTE | 2019-04-05 20:30 | NUR ---
Initial shift assessment done- denies pain at this time,, Tele on, at 1.5L/nc,Has been resting well, NPO after MN for am thoracentsis
--- NOTE | 2019-04-05 22:00 | NUR ---
[facility] notified of troponin of 0.046- Tele on, no new orders at this time. Also aware of BNP-- pt was given BUmex IV at beginning fo shift-
[2019-04-06] VITALS (13 sets, daily range): BP systolic 109–162; BP diastolic 73–103; PULSE 78–92; TEMP 97.4–98.3
--- NOTE | 2019-04-06 01:00 | NUR ---
Viramontes placed per order- 16F Viramontes with 10cc balloon inserted per policy-- immedicate return of clear yellow urine- pt states shes resting well- using C-PAP, no requests at this time
--- NOTE | 2019-04-06 05:52 | NUR ---
Has been sleeping well tonight- Has had a total of 1375 out of urine for this shift-no requests at this time
[2019-04-06 07:05] LABS: BASO # 0.1 (0.0-0.2); BASO % 0.6 % (0.0-2.0); EOS # 0.8 (0.0-0.7); EOS % 9.4 % (0-4.0); GRAN # 5.6 (1.4-6.5); LYMPH # 1.5 (1.2-3.4); LYMPH % 17.6 % (20.0-51.0); MEAN CELL VOLUME 89 fl (80.0-100.0); MEAN CORPUSCULAR HGB CONC 31 g/dl (33.0-37.0); MONO # 0.7 (0.1-0.6); MONO % 7.8 % (1.7-9.3); PLATELET COUNT 261 K/mm3 (130-400); RED BLOOD COUNT 3.44 M/mm3 (4.10-5.30)
[2019-04-06 07:13] LABS: HEMATOCRIT 30.7 % (37.0-47.0); HEMOGLOBIN 9.6 g/dl (12.5-16.0); MEAN CORPUSCULAR HEMOGLOBIN 28 pg (27.0-31.0)
[2019-04-06 07:18] LABS: CALCIUM 8.5 mg/dL (8.4-10.2); CREATININE, serum 2.31 (0.52-1.25); POTASSIUM 5.2 mmol/L (3.4-5.0); TOTAL PROTEIN 5.8 gm/dL (6.4-8.2)
[2019-04-06 07:36] LABS: TROPONIN-I 0.04 ng/mL (0.000-0.035)
--- NOTE | 2019-04-06 09:28 | NUR ---
KAREEN met with the patient to discuss discharge plan. The patient lives in [place] with her daughter (Courtney) and grandson. She reports independence with ADLs and has a walker. The patient's PCP is Dr. Ze Rivera and she receives her medications at the [facility]. She reports no difficulties obtaining her meds. The patient's advanced directives are in EMR and her daughter, Courtney, is her DPOA-HC. The patient plans to return home with her family upon discharge. No additional needs at this time.
[2019-04-06 09:39] LABS: PLEURAL FLUID RBC 16000 /mm3 (0-0); PLEURAL FLUID WBC 242 /mm3
--- NOTE | 2019-04-06 09:48 | NUR ---
Pt back from thoracentesis at this time. Reports mild discomfort. Denies SOB. Vitals to be attained.
--- NOTE | 2019-04-06 10:00 | NUR ---
Pt assessment complete. Pt is laying in bed upon entry, she just arrived back from thoracentesis. Denies pain. No SOB. Site to R back CDI. Vitals initiated. Pt is A/O x3. His breathing is even and unlabored on 2L O2 via NC. Wander NUNEZ. No needs at this time. Call light within reach.
[2019-04-06 10:03] LABS: GLUCOSE,PLEURAL FLUID 113 mg/dL
[2019-04-06 10:14] LABS: TOTAL PROTEIN,PLEURAL FLUID < 2.0 gm/dL
[2019-04-06 10:34] LABS: PLEURAL FLUID APPEARANCE CLOUDY; PLEURAL FLUID COLOR PINK
--- NOTE | 2019-04-06 19:30 | NUR ---
Pt had uneventful day. Remained on 2L O2 via NC through the day. Denied pain or SOB. Wander DD, bumex infusing. Pt denies any needs, call light within reach. Report given to GITA Silva
--- NOTE | 2019-04-06 20:00 | NUR ---
Pt sitting up in chair with O2 on at 2L/NC. Bumex infusing at 5mL/hr. Viramontes cath to DD with clear yellow urine. Voices no c/o at this time. Call light within reach.
[2019-04-07 03:12] VITALS: BP 153/99; PULSE 77; TEMP 98.6
[2019-04-07 06:32] LABS: BASO % 0.4 % (0.0-2.0); EOS # 0.7 (0.0-0.7); EOS % 9.5 % (0-4.0); GRAN # 4.8 (1.4-6.5); GRAN % 64.2 % (42.2-75.2); LYMPH # 1.4 (1.2-3.4); LYMPH % 18.6 % (20.0-51.0); MEAN CELL VOLUME 88 fl (80.0-100.0); MEAN CORPUSCULAR HGB CONC 31 g/dl (33.0-37.0); MEAN PLATELET VOLUME 10.4 fl (7.4-10.4); MONO # 0.5 (0.1-0.6); PLATELET COUNT 272 K/mm3 (130-400); REDCELL DISTRIBUTION WIDTH-CV 13.7 % (11.5-14.5)
[2019-04-07 06:41] LABS: HEMATOCRIT 30.8 % (37.0-47.0); HEMOGLOBIN 9.6 g/dl (12.5-16.0); MEAN CORPUSCULAR HEMOGLOBIN 27 pg (27.0-31.0)
[2019-04-07 06:45] LABS: CALCIUM 8.4 mg/dL (8.4-10.2); CREATININE, serum 2.09 (0.52-1.25); MAGNESIUM 1.8 mg/dL (1.6-2.3); POTASSIUM 5.2 mmol/L (3.4-5.0)
--- NOTE | 2019-04-07 07:10 | NUR ---
Pt resting in bed with TV on. IV Bumex infusing without difficulty. Wander remains to DD. Call light within reach. Report given to day shift RN.
[2019-04-07 09:00] VITALS: BP 169/86; PULSE 85; TEMP 98
--- NOTE | 2019-04-07 10:25 | NUR ---
Patient is resting in bed. Room became very warm and patient stated she was having anxiety. Did provide a fan and patient stated it helped. Oxygen remains in place at 2L. Foely catheter is dependently draining, securement device is in place. Urine is a clear, pale yellow. Hands are edematous, she states they feel much better than before. Is pleased that she is able to open and close hands better. Is very aware of fluid restriction and notified nursing of everything she had to drink during breakfast. Denies having any pain. Personal items are within reach.
[2019-04-07 12:21] VITALS: BP 157/89; PULSE 78; TEMP 97.8
--- NOTE | 2019-04-07 16:12 | NUR ---
KAREEN met with the patient and patient's daughter, Courtney, to review discharge plan and to discuss physical therapies recommendation of home health and then occupational therapies recommendation of home health vs post-acute rehab. The patient reports that she prefers to return home and would be agreeable to home health. KAREEN presented the patient with Medicare.gov's list of home health agencies that serve [place]. The patient chose [facility]. KAREEN contacted and faxed a referral to Nain at [facility]. KAREEN awaiting their screening.
[2019-04-07 17:29] VITALS: BP 133/60; PULSE 76; TEMP 97.7
--- NOTE | 2019-04-07 18:50 | NUR ---
Patient is sitting up in bed, son is at bedside. Patient is eating supper, personal items and call light is within reach.
[2019-04-07 18:56] VITALS: BP 162/66; PULSE 75; TEMP 97.9
--- NOTE | 2019-04-07 20:00 | NUR ---
Initial shift assessment done- denies pain, continues with bilateral ext edema-on bumex drip at 5cc/hr,, b/p 162/66- will hold off on prn apresoline at this time due to first dose of Lisinopril to be given at this time- jeffrey with pale yellow urine
[2019-04-07 23:28] VITALS: BP 139/67; PULSE 77; TEMP 98.1
[2019-04-08 03:30] VITALS: BP 169/79; PULSE 78; TEMP 98.1
--- NOTE | 2019-04-08 05:36 | NUR ---
Slept well last night- Did get Apresoline x1 for B/P - no requests throughout the night.
[2019-04-08 06:29] LABS: BASO % 0.4 % (0.0-2.0); EOS # 0.7 (0.0-0.7); EOS % 8.4 % (0-4.0); GRAN # 5.2 (1.4-6.5); GRAN % 65.1 % (42.2-75.2); HEMOGLOBIN 10.2 g/dl (12.5-16.0); LYMPH # 1.5 (1.2-3.4); LYMPH % 18.9 % (20.0-51.0); MEAN CELL VOLUME 87 fl (80.0-100.0); MEAN CORPUSCULAR HEMOGLOBIN 28 pg (27.0-31.0); MEAN CORPUSCULAR HGB CONC 32 g/dl (33.0-37.0); MEAN PLATELET VOLUME 10.5 fl (7.4-10.4); MONO # 0.5 (0.1-0.6); MONO % 6.8 % (1.7-9.3); PLATELET COUNT 281 K/mm3 (130-400); RED BLOOD COUNT 3.65 M/mm3 (4.10-5.30); REDCELL DISTRIBUTION WIDTH-CV 13.7 % (11.5-14.5)
[2019-04-08 06:36] LABS: HEMATOCRIT 31.6 % (37.0-47.0)
[2019-04-08 06:41] LABS: CALCIUM 8.8 mg/dL (8.4-10.2); CREATININE, serum 2.29 (0.52-1.25); POTASSIUM 5.4 mmol/L (3.4-5.0)
--- NOTE | 2019-04-08 07:40 | NUR ---
Patient is awake and alert in her bed. Verbalizes she is starting to feel much better. Does not complain of pain, states she is in a comfortable position. Call light and personal items are within reach.
[2019-04-08 08:15] VITALS: BP 138/62; PULSE 85; TEMP 98.2
[2019-04-08 08:28] LABS: MAGNESIUM 1.7 mg/dL (1.6-2.3); PHOSPHOROUS 5.3 mg/dL (2.5-4.5)
[2019-04-08 11:29] VITALS: BP 118/58; PULSE 84; TEMP 98.5
--- NOTE | 2019-04-08 14:12 | NUR ---
Nain, at [facility], reports that they can accept the patient for home health services. SW to inform the patient and will continue to follow.
[2019-04-08 16:57] VITALS: BP 146/63; PULSE 80; TEMP 97.8
--- NOTE | 2019-04-08 17:41 | NUR ---
Patient is resting in bed with head elevated, tv is on, eyes are closed. Face shows no signs of pain. Viramontes is to dependent drain with clear, pale yellow urine. Respirations are even and nonlabored. Bumex drip continues to infuse to left upper arm. Call light and personal items are within reach.
[2019-04-08 20:25] VITALS: BP 155/78; PULSE 83; TEMP 98.1
[2019-04-09] VITALS: BP 170/73; PULSE 84; TEMP 98.5
[2019-04-09 03:51] VITALS: BP 177/72; PULSE 84; TEMP 98.1
[2019-04-09 07:37] LABS: BASO # 0.1 (0.0-0.2); BASO % 0.6 % (0.0-2.0); EOS # 0.7 (0.0-0.7); EOS % 8.4 % (0-4.0); GRAN # 4.8 (1.4-6.5); GRAN % 59.7 % (42.2-75.2); HEMOGLOBIN 10.1 g/dl (12.5-16.0); LYMPH # 1.7 (1.2-3.4); LYMPH % 21.6 % (20.0-51.0); MEAN CELL VOLUME 87 fl (80.0-100.0); MEAN CORPUSCULAR HEMOGLOBIN 28 pg (27.0-31.0); MEAN CORPUSCULAR HGB CONC 33 g/dl (33.0-37.0); MEAN PLATELET VOLUME 10.6 fl (7.4-10.4); MONO # 0.7 (0.1-0.6); MONO % 9.2 % (1.7-9.3); PLATELET COUNT 286 K/mm3 (130-400); RED BLOOD COUNT 3.59 M/mm3 (4.10-5.30); REDCELL DISTRIBUTION WIDTH-CV 13.9 % (11.5-14.5)
[2019-04-09 07:42] LABS: HEMATOCRIT 31.1 % (37.0-47.0)
[2019-04-09 07:53] LABS: ALBUMIN 2.7 gm/dL (3.5-5.0); CALCIUM 8.7 mg/dL (8.4-10.2); CREATININE, serum 2.33 (0.52-1.25); POTASSIUM 4.6 mmol/L (3.4-5.0)
[2019-04-09 08:25] VITALS: BP 138/85; PULSE 84; TEMP 97.9
[2019-04-09 12:10] VITALS: BP 175/73; PULSE 84; TEMP 98.3
[2019-04-09 16:08] VITALS: BP 154/88; PULSE 79; TEMP 98.6
--- NOTE | 2019-04-09 17:45 | NUR ---
PT HAD UNEVENTFUL DAY. NO ISSUES OR CONSERNS VOICED. HAS BEEN UP TO RECLINER SOME THEN RETURNED TO BED.
--- NOTE | 2019-04-09 17:54 | NUR ---
PT HAD UNEVENTFUL DAY. NO ISSUES OR CONSERNS VOICED. HAS BEEN UP TO RECLINER SOME THEN RETURNED TO BED. MEI IN PLACE WITH NOTED URINE RETURN. BUMEX GTT INFUSING AND RATE DECREASED THIS SHIFT TO 3ML/HR. [address]
--- NOTE | 2019-04-09 20:00 | NUR ---
PT A/O X4 AND IN BED WITH HOB AT 15 DEGREE ANGLE. PT DENIES PAIN OR DISCOMFORT AND WAS RESTING/SLEEPING. NO NEEDS AT THIS TIME, CALL LIGHT WITHIN REACH.
[2019-04-09 20:01] VITALS: BP 142/67; PULSE 86; TEMP 97.5
[2019-04-10 00:18] VITALS: BP 152/63; PULSE 83; TEMP 98.1
[2019-04-10 03:53] VITALS: BP 165/54; PULSE 81; TEMP 97.9
--- NOTE | 2019-04-10 06:33 | NUR ---
UNEVENTFUL NIGHT. PT HAD NO C/O PAIN OR DISCOMFORT. PT WAS AWAKE ON HER CELLPHONE SINCE AROUND MIDNIGHT. PT HAD NO NEEDS AND CALL LIGHT WITHIN REACH.
[2019-04-10 08:43] LABS: BASO # 0.1 (0.0-0.2); BASO % 0.6 % (0.0-2.0); EOS # 0.6 (0.0-0.7); EOS % 7.8 % (0-4.0); GRAN # 4.8 (1.4-6.5); GRAN % 61.7 % (42.2-75.2); LYMPH # 1.7 (1.2-3.4); LYMPH % 21.3 % (20.0-51.0); MEAN CELL VOLUME 88 fl (80.0-100.0); MEAN CORPUSCULAR HEMOGLOBIN 28 pg (27.0-31.0); MEAN CORPUSCULAR HGB CONC 32 g/dl (33.0-37.0); MEAN PLATELET VOLUME 10.7 fl (7.4-10.4); MONO # 0.7 (0.1-0.6); MONO % 8.3 % (1.7-9.3); PLATELET COUNT 279 K/mm3 (130-400); RED BLOOD COUNT 3.54 M/mm3 (4.10-5.30); REDCELL DISTRIBUTION WIDTH-CV 13.9 % (11.5-14.5)
[2019-04-10 08:45] VITALS: BP 136/60; PULSE 85; TEMP 98
[2019-04-10 09:04] LABS: ALBUMIN 2.8 gm/dL (3.5-5.0); BILIRUBIN,TOTAL 0.2 mg/dL (0.0-1.0); CALCIUM 8.5 mg/dL (8.4-10.2); CREATININE, serum 2.34 (0.52-1.25); MAGNESIUM 1.7 mg/dL (1.6-2.3); PHOSPHOROUS 5.2 mg/dL (2.5-4.5); POTASSIUM 4.7 mmol/L (3.4-5.0); TOTAL PROTEIN 5.8 gm/dL (6.4-8.2)
[2019-04-10 09:16] LABS: HEMATOCRIT 31.3 % (37.0-47.0)
[2019-04-10 11:13] VITALS: BP 144/62; PULSE 83; TEMP 98.8
[2019-04-10 15:41] VITALS: BP 117/63; PULSE 78; TEMP 98.1
--- NOTE | 2019-04-10 19:30 | NUR ---
PT HAD UNEVENTFUL DAY. BUMEX GTT DC'D THIS SHIFT. NO ISSUES OR CONSERNS VOICED THIS SHIFT. STATED SHES HOPEFUL FOR DISCHARGE TOMORROW.
[2019-04-10 19:39] VITALS: BP 152/69; PULSE 74; TEMP 97.7
--- NOTE | 2019-04-10 19:56 | NUR ---
PT SITTING RECLINER A/O X4, FEET UP, DENIES PAIN OR DISCOMFORT, AND STILL HAS MEI CATHETER DRAINING CLEAR YELLOW URINE. NO NEEDS AT THIS TIME, CALL LIGHT WITHIN REACH.
[2019-04-11 00:10] VITALS: BP 147/71; PULSE 80; TEMP 97.7
--- NOTE | 2019-04-11 01:46 | NUR ---
PT AWAKE IN ROOM WITH HOB AT 60 DEGREE ANGLE, A/O X4. PT DENIES PAIN OR DISCOMFORT. PT REQUESTED SOMETHING TO EAT. GAVE HER A SANDWICK BOX AND A SPRITE ZERO REQUESTED. NO FURTHER NEEDS, CALL LIGHT WITHIN REACH.
[2019-04-11 03:32] VITALS: BP 135/60; PULSE 81; TEMP 98.2
[2019-04-11 06:06] LABS: BASO # 0.1 (0.0-0.2); BASO % 0.6 % (0.0-2.0); EOS # 0.8 (0.0-0.7); EOS % 9.1 % (0-4.0); GRAN # 5.5 (1.4-6.5); GRAN % 62.3 % (42.2-75.2); HEMOGLOBIN 10.1 g/dl (12.5-16.0); LYMPH # 1.7 (1.2-3.4); LYMPH % 19.6 % (20.0-51.0); MEAN CELL VOLUME 88 fl (80.0-100.0); MEAN CORPUSCULAR HEMOGLOBIN 28 pg (27.0-31.0); MEAN CORPUSCULAR HGB CONC 32 g/dl (33.0-37.0); MEAN PLATELET VOLUME 10.2 fl (7.4-10.4); MONO # 0.7 (0.1-0.6); MONO % 8.1 % (1.7-9.3); PLATELET COUNT 288 K/mm3 (130-400); RED BLOOD COUNT 3.58 M/mm3 (4.10-5.30); REDCELL DISTRIBUTION WIDTH-CV 13.7 % (11.5-14.5)
[2019-04-11 06:08] LABS: HEMATOCRIT 31.4 % (37.0-47.0)
[2019-04-11 06:23] LABS: ALBUMIN 2.8 gm/dL (3.5-5.0); BILIRUBIN,TOTAL 0.2 mg/dL (0.0-1.0); CALCIUM 8.7 mg/dL (8.4-10.2); CREATININE, serum 2.43 (0.52-1.25); MAGNESIUM 1.8 mg/dL (1.6-2.3); PHOSPHOROUS 4.8 mg/dL (2.5-4.5); TOTAL PROTEIN 5.9 gm/dL (6.4-8.2)
--- NOTE | 2019-04-11 07:39 | NUR ---
UNEVENTFUL NIGHT, PT WAS AWAKE MOST OF NIGHT, BUT AROUND 0530, PT PUT ON CPAP AND WAS SLEEPING WELL. RESP EVEN AND UNLABORED, NO S/S OF PAIN OR DISCOMFORT, AND MEI DRAINING CLEAR YELLOW URINE. CALL LIGHT WITHIN REACH.
--- NOTE | 2019-04-11 08:05 | NUR ---
Received report from GITA Naqvi.
[2019-04-11 08:18] VITALS: BP 144/69; PULSE 77; TEMP 98.3
--- NOTE | 2019-04-11 09:50 | NUR ---
Pt awake and alert upon entry, no C/O pain at this time, shift assessments complete, left Pt call light in reach, bed in lowest position.
[2019-04-11] MEDS ORDERED: ZESTRIL2.5 MG PO (10:49)
[2019-04-11] MEDS ORDERED: BUMEX2 MG PO (10:50)
[2019-04-11 11:28] VITALS: BP 129/70; PULSE 79; TEMP 97.5
--- NOTE | 2019-04-11 14:32 | NUR ---
Pt discharged to home, escorted to [facility] by [facility], left by private auto.
--- NOTE | 2019-04-11 15:35 | NUR ---
Patient was discharge home today with [facility]. KAREEN provided home health discharge orders to Nain from [facility].
== END 2019-04-11 14:34 | disposition home health service (06) | DRG 291 ==
LOC: LDRO 16:53 → MEDICAL 16:55
PROVIDERS: Family Medicine; Hospitalist; Physician Assistant; ADMIT Internal Medicine Pulmonary Disease
PROC: 0W993ZZ Drainage of Right Pleural Cavity, Percutaneous Approach (ICD-10-PCS; principal; 2019-04-06)
DX: I13.0 Hypertensive heart and chronic kidney disease with heart failure and stage 1 through stage 4 chronic kidney disease, or unspecified chronic kidney disease (principal); J96.01 Acute respiratory failure with hypoxia; I50.33 Acute on chronic diastolic (congestive) heart failure; N18.4 Chronic kidney disease, stage 4 (severe); Z68.41 Body mass index [BMI] 40.0-44.9, adult; J98.11 Atelectasis; I25.10 Atherosclerotic heart disease of native coronary artery without angina pectoris; J44.9 Chronic obstructive pulmonary disease, unspecified; D63.1 Anemia in chronic kidney disease; E11.22 Type 2 diabetes mellitus with diabetic chronic kidney disease; E11.21 Type 2 diabetes mellitus with diabetic nephropathy; G47.33 Obstructive sleep apnea (adult) (pediatric); D50.9 Iron deficiency anemia, unspecified; E66.9 Obesity, unspecified; F31.9 Bipolar disorder, unspecified; E87.5 Hyperkalemia; E83.39 Other disorders of phosphorus metabolism; F41.9 Anxiety disorder, unspecified; K59.00 Constipation, unspecified; R53.81 Other malaise; Z95.5 Presence of coronary angioplasty implant and graft; Z90.710 Acquired absence of both cervix and uterus; Z79.82 Long term (current) use of aspirin; Z79.4 Long term (current) use of insulin; Z88.8 Allergy status to other drugs, medicaments and biological substances; Z87.891 Personal history of nicotine dependence
CPT/HCPCS: 99223-AI; 99231-AI; 99232-AI; 99233-AI; 99239; J0360; J1644; J1815

== ENCOUNTER → 2019-05-21 | Outpatient (CLI) | payer MEDICARE, MEDICAID ==
[~2019-05-21] MED LIST changes: +ALBUTEROL0.83 MG/ML IH; +ZESTRIL2.5 MG PO
[2019-05-21 14:43] LABS: CALCIUM 8.3 mg/dL (8.4-10.2); CREATININE, serum 2.94 (0.52-1.25); POTASSIUM 4.8 mmol/L (3.4-5.0)
== END ==
LOC: COL.LAB 13:33
PROVIDERS: Internal Medicine Nephrology
DX: N18.3 Chronic kidney disease, stage 3 (moderate) (principal); R80.8 Other proteinuria

== ENCOUNTER → 2019-06-03 | Outpatient (CLI) | payer MEDICARE, MEDICAID ==
[2019-06-03 16:47] LABS: CREATININE, serum 2.93 (0.52-1.25); POTASSIUM 4.8 mmol/L (3.4-5.0)
== END ==
LOC: COL.VAS 12:03 → COL.LAB 12:03 → COL.VAS 12:30
PROVIDERS: Internal Medicine Nephrology
DX: N18.4 Chronic kidney disease, stage 4 (severe) (principal)
CPT/HCPCS: G0365

== ENCOUNTER → 2019-06-03 | Outpatient (CLI) | payer MEDICARE, MEDICAID | LOC: DIA.ED 04-06 07:41 | DX: E11.40 Type 2 diabetes mellitus with diabetic neuropathy, unspecified (principal); I10 Essential (primary) hypertension; Z79.4 Long term (current) use of insulin ==

== ENCOUNTER 2019-06-09 18:59 | Inpatient (IN) | payer MEDICARE, MEDICAID ==
[~2019-06-09] VITALS: Ht 160 cm; Wt 103.4 kg
[2019-06-09 19:25] VITALS: BP 154/70; PULSE 85; TEMP 98.1
[2019-06-09] MEDS ORDERED: DEMADEX100 MG PO (19:47)
[2019-06-09] MEDS ORDERED: LAMICTAL 25MG T25 MG PO (19:51)
[2019-06-09] MEDS ORDERED: COREG 3.123.125 MG/T PO (19:52)
[2019-06-09 20:57] LABS: BASO % 0.4 % (0.0-2.0); EOS # 0.9 (0.0-0.7); EOS % 10.4 % (0-4.0); GRAN # 5.1 (1.4-6.5); GRAN % 62.1 % (42.2-75.2); LYMPH # 1.6 (1.2-3.4); LYMPH % 19.3 % (20.0-51.0); MEAN CELL VOLUME 87 fl (80.0-100.0); MEAN CORPUSCULAR HGB CONC 32 g/dl (33.0-37.0); MEAN PLATELET VOLUME 10.3 fl (7.4-10.4); MONO # 0.6 (0.1-0.6); MONO % 7.6 % (1.7-9.3); PLATELET COUNT 242 K/mm3 (130-400); RED BLOOD COUNT 3.13 M/mm3 (4.10-5.30); REDCELL DISTRIBUTION WIDTH-CV 13.4 % (11.5-14.5)
[2019-06-09 20:59] LABS: PROTHROMBIN TIME 11.3 SECONDS (9.7-12.8)
[2019-06-09 21:04] LABS: ALBUMIN 2.8 gm/dL (3.5-5.0); BILIRUBIN,TOTAL 0.2 mg/dL (0.0-1.0); CALCIUM 8.3 mg/dL (8.4-10.2); CREATININE, serum 2.83 (0.52-1.25); POTASSIUM 4.7 mmol/L (3.4-5.0); TOTAL PROTEIN 5.7 gm/dL (6.4-8.2)
[2019-06-09 21:23] LABS: HEMATOCRIT 27.3 % (37.0-47.0); HEMOGLOBIN 8.7 g/dl (12.5-16.0); MEAN CORPUSCULAR HEMOGLOBIN 28 pg (27.0-31.0)
[2019-06-10] VITALS (7 sets, daily range): BP systolic 123–164; BP diastolic 65–77; PULSE 53–79; TEMP 97.6–98.4
--- NOTE | 2019-06-10 01:24 | NUR ---
PATIENT ARRIVED TO ROOM 349 AT 2030. HAD A FALL DURING TRANSPORT TO ROOM WHILE IN THE HALLWAY. FELL FACE FIRST AND HIT HER CHIN, HAS SMALL ABRASION TO L CHIN THAT IS SORE AND SWOLLEN. PATIENT WAS SOB. VSS STABLE. NEURO CHECKS GOOD. PATIENT ABLE TO TELL ME NAME, BIRTHDAY, DAY, LOCATION, HOME ADDRESS. KNEES SORE FROM HOW SHE LANDED. PATIENTS DAUGHTER WAS HERE EARLIER IN THE EVENING. NO FURTHER NEEDS AT THIS TIME. WILL CONTINUE TO MONITOR.
--- NOTE | 2019-06-10 07:40 | NUR ---
UPON ENTRY TO ROOM THE PATIENT IS ASLEEP AND RESTING IN BED. PATIENT AROUSES EASILY TO NAME. PATIENT IS A&OX4. VSS. GENERALIZED EDEMA. PATIENT STATES THAT SHE FEELS WEAK. BOWEL SOUNDS ACTIVE ALL FOUR QUADRANTS. RIGHT WRIST TO INT. CALL LIGHT WITHIN REACH. PATIENT DENIES ANY NEEDS AT THIS TIME.
--- NOTE | 2019-06-10 07:43 | NUR ---
PATIENT TAKEN TO SECURITY SYSTEM ENGINEER VIA BED. WILL WAIT FOR ARRIVAL BACK TO ROOM 349.
--- NOTE | 2019-06-10 08:00 | NUR ---
SEE [facility] FOR MEDIATION ADMINISTRATION AND INTRA/POST SEDATIOIN ASSESSMENT
--- NOTE | 2019-06-10 08:49 | NUR ---
procedure in poultry farm laborer for TDC complete, patient taken to dialysis (room 17 in express unit). Report called to Annette, 3rd floor
--- NOTE | 2019-06-10 11:57 | NUR ---
PATIENT ARRIVED BACK TO ROOM 349 VIA BED FROM DIALYSIS.
--- NOTE | 2019-06-10 12:15 | NUR ---
PATIENTS RIGHT IJ TUNNELED DIALYSIS CATHETER IN PLACE. GAUZE AND HYPAFIX DRESSING OVER INSERTION SITE. SCANT AMOUNT OF BLOOD PRESENT ON GAUZE DRESSING.
--- NOTE | 2019-06-10 12:21 | NUR ---
PRN DOSE OF PO APRESOLINE GIVEN FOR A BLOOD PRESSURE OF 161/70. WILL CONTINUE TO MONITOR.
[2019-06-10 12:59] LABS: COLLECTION METHOD CLEAN CATCH
[2019-06-10 13:05] LABS: MUCOUS Present /lpf; PH 6 (5-8); SQUAMOUS EPITHELIAL None Seen /hpf; URINE APPEARANCE Clear; URINE BACTERIA None Seen /hpf; URINE BILIRUBIN Negative (NEGATIVE); URINE BLOOD 1+ (NEGATIVE); URINE COLOR Straw; URINE GLUCOSE 3+ (NEGATIVE); URINE KETONE Negative (NEGATIVE); URINE LEUKOCYTE ESTERASE Negative (NEGATIVE); URINE NITRATE Negative (NEGATIVE); URINE PROTEIN(semi-quant) 3+ (NEGATIVE); URINE RBC 0-2 /hpf; URINE UROBILINOGEN Negative (NEGATIVE)
--- NOTE | 2019-06-10 13:36 | NUR ---
SW met with the patient to discuss a discharge plan. The patient lives in [place] with her daughter/DPOA-HC and grandson. The patient has a walker but only uses it as needed and reports she can shower on her own but her daughter assists with getting dressed. The patient's PCP is Dr. Monique and patient receives medications from [facility]. Patient reports that "sometimes she cannot affort her medications." SW will monitor to assist with medication voucher, if needed. The patient has advanced directives in the EMR. The patient plans to return home upon discharge, her daughter Courtney will provide transportation. director of career services will continue to monitor to ensure safe discharge.
[2019-06-10 13:43] LABS: URINE PROTEIN:CREAT RATIO 14.38 (0.00-0.14)
[2019-06-10 16:52] LABS: HEPATITIS B SURFACE ANTIBODY 4.4 (()); HEPATITIS B SURFACE ANTIGEN Negative (Negative); HEPATITIS C VIRUS ANTIBODY Negative (Negative)
--- NOTE | 2019-06-10 17:05 | NUR ---
PATIENT GIVEN PRN PO DOSE OF APRESOLINE FOR BLOOD PRESSURE OF 164/72. WILL CONTINUE TO MONITOR.
--- NOTE | 2019-06-10 18:51 | NUR ---
REPORT GIVEN TO GITA HERRERA.
[2019-06-10 19:01] LABS: TRANSFERRIN 185 mg/dL (192-382)
--- NOTE | 2019-06-10 20:45 | NUR ---
Pt. sitting up in bed at this time. Pt. is A&OX3, assessment complete. INT to rt. wrist patent. HD catheter to rt. IJ patent, minimal drainage noted to gauze dressing. Pt. denies pain or other needs, call light within reach.
[2019-06-11 00:27] LABS: HEPATITIS B CORE AB,TOTAL Positive (())
[2019-06-11 00:31] VITALS: BP 128/72; PULSE 76; TEMP 97.6
[2019-06-11 04:16] VITALS: BP 163/71; PULSE 75; TEMP 98.2
[2019-06-11 06:11] LABS: BASO # 0.1 (0.0-0.2); BASO % 0.5 % (0.0-2.0); EOS # 0.9 (0.0-0.7); EOS % 9.8 % (0-4.0); GRAN # 6.1 (1.4-6.5); HEMATOCRIT 30.6 % (37.0-47.0); HEMOGLOBIN 9.5 g/dl (12.5-16.0); LYMPH # 1.8 (1.2-3.4); LYMPH % 18.7 % (20.0-51.0); MEAN CELL VOLUME 88 fl (80.0-100.0); MEAN CORPUSCULAR HEMOGLOBIN 27 pg (27.0-31.0); MEAN CORPUSCULAR HGB CONC 31 g/dl (33.0-37.0); MEAN PLATELET VOLUME 10.7 fl (7.4-10.4); MONO # 0.7 (0.1-0.6); MONO % 7.4 % (1.7-9.3); PLATELET COUNT 243 K/mm3 (130-400); RED BLOOD COUNT 3.47 M/mm3 (4.10-5.30); REDCELL DISTRIBUTION WIDTH-CV 13.2 % (11.5-14.5)
[2019-06-11 06:21] LABS: ALBUMIN 2.8 gm/dL (3.5-5.0); CALCIUM 8.1 mg/dL (8.4-10.2); CREATININE, serum 2.49 (0.52-1.25); PHOSPHOROUS 3.2 mg/dL (2.5-4.5); POTASSIUM 4.9 mmol/L (3.4-5.0)
--- NOTE | 2019-06-11 08:00 | NUR ---
Patient sleeping, rouses easily and is alert and oriented while awake. Patient denies pain or needs, call light within reach.
[2019-06-11 08:44] VITALS: BP 128/76; PULSE 73; TEMP 98.5
--- NOTE | 2019-06-11 11:49 | NUR ---
Patient was sleeping.
[2019-06-11 12:59] VITALS: BP 118/68; PULSE 71; TEMP 97.9
[2019-06-11 16:00] VITALS: BP 159/75; PULSE 84; TEMP 98.4
--- NOTE | 2019-06-11 18:08 | NUR ---
Patient reports that she has not been very hungry today; she refused breakfast and lunch, has slept most of the day. Patient is more awake and alert this evening and is ordering dinner. Patient continues to deny pain or further needs, call light within reach.
[2019-06-11 20:59] VITALS: BP 156/67; PULSE 72; TEMP 98
--- NOTE | 2019-06-11 21:15 | NUR ---
Pt. sitting up in chair at this time. Pt. is A&OX3, assessment complete. INT to rt. wrist patent. HD catheter to rt. IJ dressing CDI. Pt. denies pain or other needs, call light within reach.
[2019-06-12 00:43] VITALS: BP 135/60; PULSE 73; TEMP 98.6
[2019-06-12 05:08] VITALS: BP 133/61; PULSE 75; TEMP 98.7
--- NOTE | 2019-06-12 06:11 | NUR ---
Pt. sitting up in bed with family at bedside. Pt. is A&OX3. HD cath remains patent. Pt. denies pain or other needs.
[2019-06-12 06:36] LABS: BASO # 0.1 (0.0-0.2); BASO % 0.6 % (0.0-2.0); EOS # 0.7 (0.0-0.7); EOS % 8.5 % (0-4.0); GRAN # 5.3 (1.4-6.5); GRAN % 60.2 % (42.2-75.2); LYMPH # 1.8 (1.2-3.4); LYMPH % 20.4 % (20.0-51.0); MEAN CELL VOLUME 88 fl (80.0-100.0); MEAN CORPUSCULAR HGB CONC 31 g/dl (33.0-37.0); MEAN PLATELET VOLUME 10.8 fl (7.4-10.4); MONO # 0.8 (0.1-0.6); MONO % 9.3 % (1.7-9.3); PLATELET COUNT 217 K/mm3 (130-400); RED BLOOD COUNT 3.34 M/mm3 (4.10-5.30); REDCELL DISTRIBUTION WIDTH-CV 13.3 % (11.5-14.5)
[2019-06-12 06:42] LABS: HEMATOCRIT 29.4 % (37.0-47.0); HEMOGLOBIN 9.1 g/dl (12.5-16.0); MEAN CORPUSCULAR HEMOGLOBIN 27 pg (27.0-31.0)
[2019-06-12 06:47] LABS: ALBUMIN 2.7 gm/dL (3.5-5.0); CALCIUM 8.4 mg/dL (8.4-10.2); CREATININE, serum 2.61 (0.52-1.25); PHOSPHOROUS 3.7 mg/dL (2.5-4.5); POTASSIUM 4.7 mmol/L (3.4-5.0)
[2019-06-12 07:27] VITALS: BP 159/73; PULSE 78; TEMP 98.2
--- NOTE | 2019-06-12 09:00 | NUR ---
Patient awake in bed this morning, alert and oriented, answers questions appropriately. Patient ate breakfast this morning. Patient to dialysis at approximately 0840. PPD read with house decorator, Miguel, area of induration approximately 4mm, test read as negitive.
[2019-06-12 12:07] VITALS: BP 112/57; PULSE 75; TEMP 98
[2019-06-12 15:48] VITALS: BP 159/72; PULSE 73; TEMP 98.6
--- NOTE | 2019-06-12 18:26 | NUR ---
Patient remains resting in bed. Patient reports that she urinated, but it was not measured. Patient denies pain or needs, call light within reach.
[2019-06-12 20:00] VITALS: BP 160/73; PULSE 74; TEMP 98.3
[2019-06-13] VITALS: BP 159/66; PULSE 82; TEMP 98.3
--- NOTE | 2019-06-13 02:26 | NUR ---
PATIENT DOING WELL TONIGHT. DENIES PAIN OR NEED FOR PAIN MEDICATION. SEE ASSESSMENT. NO FURTHER NEEDS. WILL CONTINUE TO MONITOR.
[2019-06-13 04:28] VITALS: BP 169/74; PULSE 75; TEMP 97.6
[2019-06-13 07:19] LABS: BASO % 0.3 % (0.0-2.0); EOS # 0.8 (0.0-0.7); EOS % 8.7 % (0-4.0); GRAN # 5.5 (1.4-6.5); GRAN % 59.1 % (42.2-75.2); LYMPH # 2.1 (1.2-3.4); LYMPH % 22.7 % (20.0-51.0); MEAN CELL VOLUME 88 fl (80.0-100.0); MEAN CORPUSCULAR HGB CONC 32 g/dl (33.0-37.0); MEAN PLATELET VOLUME 10.7 fl (7.4-10.4); MONO # 0.8 (0.1-0.6); MONO % 8.4 % (1.7-9.3); PLATELET COUNT 212 K/mm3 (130-400); REDCELL DISTRIBUTION WIDTH-CV 13.4 % (11.5-14.5)
[2019-06-13 07:29] LABS: HEMATOCRIT 30.8 % (37.0-47.0); HEMOGLOBIN 9.7 g/dl (12.5-16.0); MEAN CORPUSCULAR HEMOGLOBIN 28 pg (27.0-31.0)
[2019-06-13 07:36] LABS: ALBUMIN 2.8 gm/dL (3.5-5.0); CALCIUM 8.7 mg/dL (8.4-10.2); CREATININE, serum 2.45 (0.52-1.25); PHOSPHOROUS 3.7 mg/dL (2.5-4.5); POTASSIUM 4.6 mmol/L (3.4-5.0)
[2019-06-13 07:43] VITALS: BP 180/77; PULSE 71; TEMP 98.2
--- NOTE | 2019-06-13 08:13 | NUR ---
PATIENT ASSESSMENT COMPLETED. PATIENT HERE FOR DX OF DIALYSIS INITIATION. PATIENT HAS RIDE SIDED DIALYSIS CATH. SITE IN CLEAN DRY AND INTACT. PATIENT ALERT AND ORIENTED AND VSS. ALL MORNING MEDS GIVEN. PATIENT REFUSES BREAKFAST, STATES SHE ONLY EATS ONCE A DAY. PATIENT DOES STATE SHE IS IN SOME PAIN HER BP WAS ELEVATED AT 180/77. WILL CONTINUE TO MONITOR THIS. PATIENT NOT HAVING ANY OTHER SYMPTOMS AT THIS TIME. PATIENT LAYING IN BED WATCHING TV, CALL LIGHT WITHIN REACH. WILL CONTINUE TO MONITOR
[2019-06-13 11:31] VITALS: BP 165/75; PULSE 69; TEMP 97.9
--- NOTE | 2019-06-13 16:35 | NUR ---
PATIENT HAS BEEN SLEEPING MOST OF DAY. PATIENT REFUSED BREAKFAST AND LUNCH. PATIENT HAS NOT TAKEN MUCH ORALLY, JUST A FEW ICE CHIPS. PATIENT STATES SHE HAS NO VOIDED TODAY. ENCOURAGE PATIENT TO EAT AND DRINK MORE. CALL LIGHT WITHIN REACH, WILL CONTINUE TO MONITOR
[2019-06-13 16:59] VITALS: BP 146/75; PULSE 73; TEMP 98.4
[2019-06-13 20:00] VITALS: BP 156/68; PULSE 75; TEMP 98
--- NOTE | 2019-06-13 20:35 | NUR ---
Pt. sitting up in chair at this time. Pt. is A&OX3, assessment complete. INT to rt. wrist patent. HD catheter to rt. IJ patent, dressing CDI. Pt. denies pain or other needs.
[2019-06-14] VITALS (7 sets, daily range): BP systolic 123–175; BP diastolic 53–79; PULSE 70–76; TEMP 97.3–98.5
--- NOTE | 2019-06-14 05:25 | NUR ---
Pt. slept well through the night. Pt. remains A&OX3, INT to rt. wrist patent. Pt. denies pain or other needs, call light within reach.
[2019-06-14 06:47] LABS: BASO % 0.4 % (0.0-2.0); EOS # 0.9 (0.0-0.7); GRAN # 5.9 (1.4-6.5); GRAN % 61.5 % (42.2-75.2); LYMPH % 20.6 % (20.0-51.0); MEAN CELL VOLUME 90 fl (80.0-100.0); MEAN CORPUSCULAR HGB CONC 31 g/dl (33.0-37.0); MEAN PLATELET VOLUME 10.8 fl (7.4-10.4); MONO # 0.7 (0.1-0.6); MONO % 7.5 % (1.7-9.3); PLATELET COUNT 236 K/mm3 (130-400); RED BLOOD COUNT 3.58 M/mm3 (4.10-5.30); REDCELL DISTRIBUTION WIDTH-CV 13.6 % (11.5-14.5)
[2019-06-14 06:48] LABS: HEMATOCRIT 32.1 % (37.0-47.0); HEMOGLOBIN 9.8 g/dl (12.5-16.0); MEAN CORPUSCULAR HEMOGLOBIN 27 pg (27.0-31.0)
[2019-06-14 07:01] LABS: ALBUMIN 2.8 gm/dL (3.5-5.0); CALCIUM 8.4 mg/dL (8.4-10.2); CREATININE, serum 2.5 (0.52-1.25); PHOSPHOROUS 3.8 mg/dL (2.5-4.5); POTASSIUM 5.4 mmol/L (3.4-5.0)
--- NOTE | 2019-06-14 08:00 | NUR ---
Patient in bed resting. Alert and oriented x 3. Shift assessment complete. CPAP on. Dialysis catheter to right IJ. Denies pain at this time. Denies further needs at this time.
--- NOTE | 2019-06-14 11:04 | NUR ---
TB skin test in left forearm, 1cm erythema round puncture site, no induration. Patient denies known exposure to TB for self and immediate family.
--- NOTE | 2019-06-14 11:54 | NUR ---
Patient down to dialysis
--- NOTE | 2019-06-14 15:26 | NUR ---
Patient up from dialysis, denies further needs at this time.
--- NOTE | 2019-06-14 18:36 | NUR ---
Patient has done well throughout the day, ambulating in [place] with family this afternoon. Denies pain at this time. Denies further needs at this time. 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
--- NOTE | 2019-06-14 20:45 | NUR ---
Pt. sitting up in bed with family at bedside. Pt. is A&OX3, assessment complete. INT to rt. wrist patent. HD cath to rt. IJ patent, Dressing CDI. Pt. denies pain or other needs, call light within reach.
[2019-06-15] VITALS (12 sets, daily range): BP systolic 113–174; BP diastolic 52–71; PULSE 65–73; TEMP 97.4–98.3
[2019-06-15 07:30] LABS: BASO # 0.1 (0.0-0.2); BASO % 0.5 % (0.0-2.0); EOS # 0.9 (0.0-0.7); EOS % 9.4 % (0-4.0); GRAN # 6.2 (1.4-6.5); GRAN % 61.6 % (42.2-75.2); LYMPH % 19.9 % (20.0-51.0); MEAN CELL VOLUME 89 fl (80.0-100.0); MEAN CORPUSCULAR HEMOGLOBIN 28 pg (27.0-31.0); MEAN CORPUSCULAR HGB CONC 31 g/dl (33.0-37.0); MEAN PLATELET VOLUME 10.4 fl (7.4-10.4); MONO # 0.8 (0.1-0.6); MONO % 7.8 % (1.7-9.3); PLATELET COUNT 251 K/mm3 (130-400); REDCELL DISTRIBUTION WIDTH-CV 13.9 % (11.5-14.5)
[2019-06-15 07:41] LABS: HEMATOCRIT 32.2 % (37.0-47.0)
[2019-06-15 07:43] LABS: ALBUMIN 2.7 gm/dL (3.5-5.0); CALCIUM 8.3 mg/dL (8.4-10.2); CREATININE, serum 2.27 (0.52-1.25); PHOSPHOROUS 3.6 mg/dL (2.5-4.5); POTASSIUM 4.8 mmol/L (3.4-5.0)
--- NOTE | 2019-06-15 08:00 | NUR ---
PATIENT IS RESTING IN THE CHAIR THIS MORNING. PATIENT IS A&OX4. VSS. BOWEL SOUNDS ACTIVE ALL FOUR QUADRANTS. PATIENT TOLERATING DIET WITHOUT ANY COMPLAINTS OF N/V. POSITIVE PEDAL PULSES EQUAL BILATERALLY. 1+ EDEMA TO FEET BILATERALLY. 3+ PITTING-EDEMA TO BLE. GENERALIZED EDEMA NOTED. PATIENT STATES THAT SHE FEELS WEAK AT THIS TIME. RIGHT WRIST TO INT. HEMODIALYSIS CATHETER TO RIGHT CHEST. TEGADERM DRESSING IS IN PLACE AND IS CD&I. CALL LIGHT WITHIN REACH. PATIENT DENIES ANY NEEDS AT THIS TIME.
--- NOTE | 2019-06-15 10:55 | NUR ---
SW attempted to follow up with patient about discharge plan. Patient was asleep. SW will meet with patient later today. SW informed that patient used [facility] for PT, OT, and fpc prior to admission. SW will inquire with if patient would like to continue using their services.
--- NOTE | 2019-06-15 12:16 | NUR ---
First visit from the biochemistry technician. No needs right now.
--- NOTE | 2019-06-15 14:35 | NUR ---
KAREEN met with patient and daughter, this morning, to discuss discharge plan. Patient reports she would like to continue using [facility] services for PT, OT and nursing. SW reported that she will inform [facility] and fax clinical information.
--- NOTE | 2019-06-15 16:58 | NUR ---
PATIENT TAKEN TO [facility] VIA BED. CONSENT FORM SIGNED ON PATIENT CHART. IV FLUIDS TO GRAVITY FLOW TUBING.
--- NOTE | 2019-06-15 18:40 | NUR ---
REPORT GIVEN TO GITA ZAMORA.
--- NOTE | 2019-06-15 19:30 | NUR ---
Patient returned from surgery with RN. States 8/10 pain in back, and discomfort in left wrist. Pain meds not ordered, will notify Dr. Stephen and get an order for pain meds. Patient agreeable to plan. Left wrist CDI, closed with glue. Bruit/thrill present in left wrist. Will continue to monitor.
--- NOTE | 2019-06-15 20:49 | NUR ---
Patient in bed, drowsy. States pain 8/10. Prn pain medication was ordered, and given. Oxygen 89-92% d/t meds given in surgery. Will apply 2L of oxygen while sleeping. When patient is talking, her O2 is 95-96%. Will continue to monitor.
[2019-06-16 03:55] VITALS: BP 138/64; PULSE 70; TEMP 97.9
--- NOTE | 2019-06-16 04:26 | NUR ---
Patient in bed, awake. States, 2/10 pain. Declines pain medication. Denies further needs at this time. Will continue to monitor.
--- NOTE | 2019-06-16 08:00 | NUR ---
PATIENT IS RESTING IN BED THIS MORNING. PATIENT IS A&OX4. VSS. BOWEL SOUNDS ACTIVE ALL FOUR QUADRANTS. PATIENT TOLERATING DIET WITHOUT ANY COMPLAINTS OF N/V. POSITIVE PEDAL PULSES EQUAL BILATERALLY. 3+ PITTING-EDEMA TO BLE. SCD'S TO BLE. GENERALIZED EDEMA NOTED. PATIENT'S LEFT FOREARM AV FISTULA INCISION IS ÓSCAR WITH MELÉNDEZ SET IN PLACE AND EDGES WELL APPROXIMATED. GOOD BRUIT AND THRILL OVER AV FISTULA SITE. STRONG RADIAL PULSES EQUAL BILATERALLY. RIGHT WRIST TO INT. HEMODIALYSIS CATHETER TO RIGHT CHEST. TEGADERM DRESSING IS IN PLACE AND IS CD&I. CALL LIGHT WITHIN REACH. PATIENT DENIES ANY NEEDS AT THIS TIME.
[2019-06-16 08:35] VITALS: BP 111/50; PULSE 75; TEMP 97.6
[2019-06-16] MEDS ORDERED: FOLIC ACID 11 MG/TA1 PO (10:29)
[2019-06-16] MEDS ORDERED: BUMEX2 MG PO (10:36)
[2019-06-16] MEDS ORDERED: LIPITOR20 MG PO (10:37)
--- NOTE | 2019-06-16 10:50 | NUR ---
PATIENT'S RIGHT WRIST INT DISCONTINUED PER PENDING DISCHARGE. TIP INTACT. PATIENT TOLERATED WELL.
--- NOTE | 2019-06-16 11:12 | NUR ---
KAREEN met with patient to discuss discharge. Patient will discharge home today with [facility] for senior care, PT and OT. KAREEN presented IM to patient. She signed and declined a copy. KAREEN faxed discharge orders nad contacted [facility] about discharge today.
--- NOTE | 2019-06-16 11:25 | NUR ---
DISCHARGE INSTRUCTIONS REVIEWED WITH PATIENT AND DAUGHTER. ALL QUESTIONS ANSWERED. PATIENT PERSONAL BELONGINGS GATHERED.
--- NOTE | 2019-06-16 11:35 | NUR ---
PATIENT TAKEN TO PERSONAL VEHICLE VIA WHEELCHAIR BY SURGICAL STAFF. PATIENT DISCHARGED.
== END 2019-06-16 11:35 | disposition home or self-care (01) | DRG 264 ==
LOC: SURG 18:59
PROVIDERS: Surgery; ADMIT Internal Medicine Nephrology
PROC: 5A1D70Z Performance of Urinary Filtration, Intermittent, Less than 6 Hours Per Day (ICD-10-PCS; 2019-06-10)
PROC: 0JH63XZ Insertion of Tunneled Vascular Access Device into Chest Subcutaneous Tissue and Fascia, Percutaneous Approach (ICD-10-PCS; 2019-06-10)
PROC: 02H633Z Insertion of Infusion Device into Right Atrium, Percutaneous Approach (ICD-10-PCS; 2019-06-10)
PROC: 031C0ZF Bypass Left Radial Artery to Lower Arm Vein, Open Approach (ICD-10-PCS; principal; 2019-06-15 14:30)
DX: I13.2 Hypertensive heart and chronic kidney disease with heart failure and with stage 5 chronic kidney disease, or end stage renal disease (principal); N18.6 End stage renal disease; I25.10 Atherosclerotic heart disease of native coronary artery without angina pectoris; I50.9 Heart failure, unspecified; E11.22 Type 2 diabetes mellitus with diabetic chronic kidney disease; F31.9 Bipolar disorder, unspecified; F41.9 Anxiety disorder, unspecified; L29.9 Pruritus, unspecified; D63.1 Anemia in chronic kidney disease; J44.9 Chronic obstructive pulmonary disease, unspecified; T50.1X5A Adverse effect of loop [high-ceiling] diuretics, initial encounter; Z95.5 Presence of coronary angioplasty implant and graft; Z90.710 Acquired absence of both cervix and uterus; I25.2 Old myocardial infarction; Z79.82 Long term (current) use of aspirin; Z79.4 Long term (current) use of insulin; Z79.51 Long term (current) use of inhaled steroids
CPT/HCPCS: C1892; J0690; J0882; J1644; J1815; J2250; J2405; J2704; J2916; J3010; J7030

== ENCOUNTER → 2019-06-24 | Outpatient (CLI) | payer MEDICARE, MEDICAID ==
[~2019-06-24] MED LIST changes: +DEMADEX100 MG PO; +LIPITOR20 MG PO
== END ==
LOC: COL.VAS 14:11
DX: N18.4 Chronic kidney disease, stage 4 (severe) (principal); I77.0 Arteriovenous fistula, acquired

== ENCOUNTER → 2019-10-05 | Outpatient (CLI) | payer MEDICARE, MEDICAID | LOC: COL.RAD 15:27 | DX: R06.00 Dyspnea, unspecified (principal); Z98.1 Arthrodesis status; Z95.9 Presence of cardiac and vascular implant and graft, unspecified ==

== ENCOUNTER → 2019-11-17 | Outpatient (CLI) | payer MEDICARE, MEDICAID ==
[~2019-11-17] VITALS: Ht 160 cm; Wt 102.1 kg
[~2019-11-17] MED LIST changes: +CHERATUSSIN AC120 ML PO; +INCRUSE EL62.5 MCG/A IH; +NITROSTAT0.4 MG/TAB SL; +PHOS LO PO; +TRIPHROCAPS SOFT1 MG PO; +ZITHROMAX Z PA250 MG PO
[2019-11-17 11:13] VITALS: BP 162/88; PULSE 93
[2019-11-17 11:55] VITALS: BP 156/81; PULSE 88
== END ==
LOC: COL.RAD 10:30
DX: N18.6 End stage renal disease (principal); Z49.01 Encounter for fitting and adjustment of extracorporeal dialysis catheter

== ENCOUNTER 2020-10-23 06:06 | Outpatient (CLI) | payer MEDICARE, MEDICAID ==
[2020-10-23] VITALS (11 sets, daily range): BP systolic 134–172; BP diastolic 71–87; PULSE 76–87; TEMP 98.3
[~2020-10-23] VITALS: Ht 160 cm; Wt 99.5 kg
[~2020-10-23 06:06] MED LIST changes: -00186-0370-20 IH; -INCRUSE EL62.5 MCG/A IH
[2020-10-23] MEDS ORDERED: BUMEX2 MG PO (07:44)
[2020-10-23] MEDS ORDERED: NOVOLOG FLEX100 U/ML SQ (07:49)
[2020-10-23] MEDS ORDERED: PHOSLO667 MG PO (07:51)
[2020-10-23] MEDS ORDERED: [UNRECOGNIZED DRUG - OTHER] PO (07:52)
[2020-10-23] MEDS ORDERED: 00186-0370-20 IH (07:55)
[2020-10-23] MEDS ORDERED: INCRUSE EL62.5 MCG/A IH (07:55)
--- NOTE | 2020-10-23 08:37 | NUR ---
SEE MERGE DOCUMENTATION FOR MEDICATION ADMINISTRATION TIMES AND INTRA/POST PROCEDURE SEDATION ASSESSMENTS. PT WITH IODINE ALLERGY; PRETREATED WITH BENADRYL [address] TUBBS.
--- NOTE | 2020-10-23 12:11 | NUR ---
Discharge instructions given to pt.pt verbalizes understanding.INT removed,catheter tip intact.
--- NOTE | 2020-10-23 12:20 | NUR ---
Pt escorted out by Sonja Mendoza via wheelchair
== END 2020-10-23 15:17 | disposition home or self-care (01) ==
LOC: COL.CAR 06:06
DX: T82.858A Stenosis of other vascular prosthetic devices, implants and grafts, initial encounter (principal); E11.22 Type 2 diabetes mellitus with diabetic chronic kidney disease; I12.0 Hypertensive chronic kidney disease with stage 5 chronic kidney disease or end stage renal disease; N18.6 End stage renal disease; Z99.2 Dependence on renal dialysis; I25.2 Old myocardial infarction; Z90.710 Acquired absence of both cervix and uterus; Z91.041 Radiographic dye allergy status; Z88.8 Allergy status to other drugs, medicaments and biological substances; Z79.82 Long term (current) use of aspirin; Z79.02 Long term (current) use of antithrombotics/antiplatelets; Z87.891 Personal history of nicotine dependence
CPT/HCPCS: J1200; J1644; J2250; J3010; Q9967

== ENCOUNTER 2021-05-23 09:50 | Observation (INO) | payer MEDICARE, MEDICAID ==
[~2021-05-23] VITALS: Ht 160.1 cm; Wt 93.6 kg
[~2021-05-23 09:50] MED LIST changes: +00186-0370-20 IH; +INCRUSE EL62.5 MCG/A IH; +PHOSLO667 MG PO; +[UNRECOGNIZED DRUG - OTHER] PO
[2021-05-23 10:53] LABS: BASO % 0.5 % (0.0-2.0); EOS # 0.5 (0.0-0.7); EOS % 6.5 % (0-4.0); GRAN # 5.9 (1.4-6.5); GRAN % 75.4 % (42.2-75.2); HEMOGLOBIN 11.1 g/dl (12.5-16.0); LYMPH # 0.7 (1.2-3.4); LYMPH % 9.2 % (20.0-51.0); MEAN CELL VOLUME 91 fl (80.0-100.0); MEAN CORPUSCULAR HEMOGLOBIN 30 pg (27.0-31.0); MEAN CORPUSCULAR HGB CONC 33 g/dl (33.0-37.0); MEAN PLATELET VOLUME 9.7 fl (7.4-10.4); MONO # 0.6 (0.1-0.6); MONO % 7.9 % (1.7-9.3); PLATELET COUNT 262 K/mm3 (130-400); RED BLOOD COUNT 3.72 M/mm3 (4.10-5.30); REDCELL DISTRIBUTION WIDTH-CV 13.7 % (11.5-14.5)
[2021-05-23 11:00] LABS: HEMATOCRIT 33.9 % (37.0-47.0)
[2021-05-23 11:10] LABS: ALBUMIN 3.8 gm/dL (3.5-5.0); BILIRUBIN,TOTAL 0.1 mg/dL (0.0-1.0); CALCIUM 8.8 mg/dL (8.4-10.2); CREATININE, serum 2.08 (0.52-1.25); POTASSIUM 4.2 mmol/L (3.4-5.0); TOTAL PROTEIN 7.5 gm/dL (6.4-8.2)
[2021-05-23 11:22] LABS: TROPONIN-I 0.012 ng/mL (0.000-0.035)
[2021-05-23 11:28] LABS: C-REACTIVE PROTEIN 1.7 mg/dL (0.0-0.9)
[2021-05-23 12:49] LABS: COLLECTION METHOD CATHETER
[2021-05-23 12:55] LABS: PH 7 (5-8); SQUAMOUS EPITHELIAL None Seen /hpf; URINE APPEARANCE Clear; URINE BACTERIA None Seen /hpf; URINE BILIRUBIN Negative (NEGATIVE); URINE BLOOD Negative (NEGATIVE); URINE COLOR Yellow; URINE GLUCOSE 3+ (NEGATIVE); URINE KETONE Negative (NEGATIVE); URINE LEUKOCYTE ESTERASE Negative (NEGATIVE); URINE NITRATE Negative (NEGATIVE); URINE PROTEIN(semi-quant) 3+ (NEGATIVE); URINE RBC 0-2 /hpf; URINE UROBILINOGEN Negative (NEGATIVE)
[2021-05-23 13:03] LABS: TRICYCLIC ANTIDEPRESS URINE NEGATIVE
[2021-05-23 17:27] VITALS: BP 140/61; PULSE 72
--- NOTE | 2021-05-23 17:27 | NUR ---
C/O INTERMITTENT CHEST PAIN / DESCRIBED A PRESSURE. DA AT BEDSIDE, PT TEARFUL TALKING TO DR. BROWN ABOUT PT METH USAGE. MED LIST PRINTED, PT DA REPORTS PT NOT TAKING MEDICATIONS. PT DROWSY ADN LEHTARGIC BUT AOX4. NEURO CHECK PERFOMRED, R LEG WEAKER AND REPORTS NUMBNESS, DR. BROWN AWARE OF SITUATION.
--- NOTE | 2021-05-23 18:34 | NUR ---
PT DROWSY IN ROOM, DA AT BEDSIDE PT REPORTS INT CHEST PAIN, NO OTHER NEEDS
[2021-05-23] MEDS ORDERED: LEXAPRO 10MG10 MG PO (19:34)
[2021-05-23] MEDS ORDERED: NEURONTIN100 MG/CAP PO (19:37)
[2021-05-23] MEDS ORDERED: PERCOCET 325 MG1 TA3 PO (19:40)
[2021-05-23] MEDS ORDERED: TRIPHROCAPS SOFT1 MG PO (19:42)
--- NOTE | 2021-05-23 20:30 | NUR ---
Initial shift assessment done- did go over her home meds with patient-states has not taken any meds for 4-5days and most of the meds its been over a month since she has taken them,, when asked about this states its just too confusing for her and "i just forget". Tele on- Drowsy, but attemping to eat some supper at this time, is oriented x4- Slight generalized edema and lower extremity edema- pleasant, denies pain or SOB. VSS
[2021-05-23 20:53] VITALS: BP 140/60; PULSE 79; TEMP 97.5
[2021-05-24 00:40] VITALS: BP 137/68; PULSE 82; TEMP 98
[2021-05-24 04:44] VITALS: BP 141/60; PULSE 85; TEMP 98.4
--- NOTE | 2021-05-24 05:26 | NUR ---
Quiet night- slept most of the night- VSS, Did get up to [facility] this morning and voided 500cc marie,cloudy urine.
--- NOTE | 2021-05-24 07:40 | NUR ---
Report received from GITA Smiley. Pt awake, lying in bed, alert/oriented. Reports lower back pain rated 5/10. Pt refused pain medication; hot pad applied per pt request. Pt denies any other needs at this time. Call nassar in reach. Will continue to monitor
[2021-05-24 07:55] VITALS: BP 134/56; PULSE 86; TEMP 97.1
[2021-05-24 08:35] LABS: BASO % 0.4 % (0.0-2.0); EOS # 0.5 (0.0-0.7); GRAN # 5.3 (1.4-6.5); GRAN % 69.1 % (42.2-75.2); HEMOGLOBIN 10.9 g/dl (12.5-16.0); LYMPH # 1.2 (1.2-3.4); MEAN CORPUSCULAR HEMOGLOBIN 31 pg (27.0-31.0); MEAN CORPUSCULAR HGB CONC 32 g/dl (33.0-37.0); MEAN PLATELET VOLUME 10.2 fl (7.4-10.4); MONO # 0.5 (0.1-0.6); PLATELET COUNT 261 K/mm3 (130-400); RED BLOOD COUNT 3.55 M/mm3 (4.10-5.30)
[2021-05-24 08:37] LABS: HEMATOCRIT 34.4 % (37.0-47.0)
[2021-05-24 08:38] LABS: MEAN CELL VOLUME 97 fl (80.0-100.0)
[2021-05-24 08:43] LABS: ALBUMIN 3.5 gm/dL (3.5-5.0); PHOSPHOROUS 3.8 mg/dL (2.5-4.5); POTASSIUM 4.5 mmol/L (3.4-5.0)
--- NOTE | 2021-05-24 09:00 | NUR ---
PT WENT TO DIALYSIS
--- NOTE | 2021-05-24 09:00 | NUR ---
CONSULTED DR. BERNAL WHO SAID TO CONSULT DR. JOSEPH FOR PT TO BE SEEN. DR. JOSEPH CALLED AND AWARE OF CONSULT
--- NOTE | 2021-05-24 10:07 | NUR ---
NOTIFIED DR. BROWN OF CONFLICTING MEDICATIONS FROM MED LIST AND PT REPORT.
--- NOTE | 2021-05-24 11:50 | NUR ---
wind up worker notified by child welfare caseworker Faina that patient is changing to OBS status. Worker presented Garcia form to the patient, educated her on contents and witnessed signature. Copy was made for the chart and original given to the patient.
[2021-05-24 12:10] VITALS: BP 134/56; PULSE 86; TEMP 97.1
[2021-05-24 12:45] VITALS: BP 123/65; PULSE 76; TEMP 97.5
--- NOTE | 2021-05-24 13:40 | NUR ---
Pt returned from dialysis. Resting in bed. Denies any needs at this time. Call nassar in reach.
[2021-05-24] MEDS ORDERED: PLAVIX 75MG TAB75 MG PO (14:30)
[2021-05-24] MEDS ORDERED: INCRUSE EL62.5 MCG/A IH (14:30)
[2021-05-24] MEDS ORDERED: NITROSTAT0.4 MG/TAB SL (14:31)
[2021-05-24] MEDS ORDERED: ASPIRIN E.C. 8181 MG PO (14:31)
[2021-05-24] MEDS ORDERED: LIPITOR20 MG PO (14:31)
[2021-05-24] MEDS ORDERED: NEURONTIN100 MG/CAP PO ×2 (14:32)
[2021-05-24] MEDS ORDERED: SINGULAIR 110 MG/TAB PO (14:33)
[2021-05-24] MEDS ORDERED: DEXILANT60 MG PO (14:33)
--- NOTE | 2021-05-24 14:36 | NUR ---
Spoke with Dr. Reveles to notify time of juliana test at 1330, and per Dr. Reveles's understanding the juliana was suppose to be done outpatient and the patient was going to be discharged and construction technician was not in house. Called RN and explained about the test and she attempted to call Dr. Stephen who did not answer phone.
--- NOTE | 2021-05-24 15:21 | NUR ---
Went over discharge instructions and doctor follow up appts w/pt. Questions invited and answered. No other requests at this time. Pt dressed, packed, and ready to go.
== END 2021-05-24 16:10 | disposition home or self-care (01) ==
LOC: COL.ER 09:50 → MEDICAL 12:43
PROVIDERS: Nurse Practitioner; ADMIT Internal Medicine Nephrology
DX: T43.621A Poisoning by amphetamines, accidental (unintentional), initial encounter (principal); R07.9 Chest pain, unspecified; F15.90 Other stimulant use, unspecified, uncomplicated; T38.3X6A Underdosing of insulin and oral hypoglycemic [antidiabetic] drugs, initial encounter; E11.22 Type 2 diabetes mellitus with diabetic chronic kidney disease; I13.2 Hypertensive heart and chronic kidney disease with heart failure and with stage 5 chronic kidney disease, or end stage renal disease; N18.6 End stage renal disease; I50.9 Heart failure, unspecified; E11.42 Type 2 diabetes mellitus with diabetic polyneuropathy; J44.9 Chronic obstructive pulmonary disease, unspecified; F31.9 Bipolar disorder, unspecified; D63.1 Anemia in chronic kidney disease; I25.10 Atherosclerotic heart disease of native coronary artery without angina pectoris; Z91.14 Patient's other noncompliance with medication regimen; Z99.2 Dependence on renal dialysis; Y92.531 Health care provider office as the place of occurrence of the external cause; Z87.891 Personal history of nicotine dependence; Z95.818 Presence of other cardiac implants and grafts; Z79.82 Long term (current) use of aspirin; Z79.02 Long term (current) use of antithrombotics/antiplatelets; Z79.4 Long term (current) use of insulin; Z79.899 Other long term (current) drug therapy
CPT/HCPCS: G0378; J1644; J7030

== ENCOUNTER 2021-06-19 16:05 | Emergency (ER) | payer MEDICARE, MEDICAID ==
[~2021-06-19] VITALS: Ht 162.6 cm; Wt 93.2 kg
[~2021-06-19 16:05] MED LIST changes: +LEXAPRO 10MG10 MG PO; +PERCOCET 325 MG1 TA3 PO
[2021-06-19 16:13] VITALS: TEMP 98.3
[2021-06-19 17:42] LABS: BASO % 0.5 % (0.0-2.0); EOS # 0.5 (0.0-0.7); EOS % 6.7 % (0-4.0); GRAN # 5.4 (1.4-6.5); GRAN % 67.2 % (42.2-75.2); HEMATOCRIT 37.8 % (37.0-47.0); HEMOGLOBIN 11.7 g/dl (12.5-16.0); LYMPH # 1.2 (1.2-3.4); LYMPH % 15.1 % (20.0-51.0); MEAN CELL VOLUME 94 fl (80.0-100.0); MEAN CORPUSCULAR HEMOGLOBIN 29 pg (27.0-31.0); MEAN CORPUSCULAR HGB CONC 31 g/dl (33.0-37.0); MEAN PLATELET VOLUME 10.1 fl (7.4-10.4); MONO # 0.8 (0.1-0.6); MONO % 10.1 % (1.7-9.3); PLATELET COUNT 270 K/mm3 (130-400); RED BLOOD COUNT 4.03 M/mm3 (4.10-5.30); REDCELL DISTRIBUTION WIDTH-CV 14.1 % (11.5-14.5)
[2021-06-19 17:57] LABS: ALBUMIN 3.9 gm/dL (3.5-5.0); BILIRUBIN,TOTAL 0.3 mg/dL (0.0-1.0); CALCIUM 8.9 mg/dL (8.4-10.2); CREATININE, serum 4.02 (0.52-1.25); POTASSIUM 4.5 mmol/L (3.4-5.0); TOTAL PROTEIN 7.4 gm/dL (6.4-8.2)
[2021-06-19 19:28] VITALS: BP 148/80; PULSE 94
== END 2021-06-19 19:28 | disposition home or self-care (01) ==
LOC: COL.ER 16:05
PROVIDERS: Personal Emergency Response Attendant
DX: B34.9 Viral infection, unspecified (principal); F41.9 Anxiety disorder, unspecified; F31.9 Bipolar disorder, unspecified; I25.10 Atherosclerotic heart disease of native coronary artery without angina pectoris; I50.9 Heart failure, unspecified; E11.9 Type 2 diabetes mellitus without complications; I25.2 Old myocardial infarction; Z87.891 Personal history of nicotine dependence; Z79.02 Long term (current) use of antithrombotics/antiplatelets; Z79.82 Long term (current) use of aspirin; Z79.899 Other long term (current) drug therapy; Z79.4 Long term (current) use of insulin; Z20.822 Contact with and (suspected) exposure to COVID-19
CPT/HCPCS: J2270; J2405

== ENCOUNTER 2021-08-02 06:39 | Day surgery (SDC) | payer MEDICARE, MEDICAID ==
[~2021-08-02] VITALS: Ht 162.6 cm; Wt 93.2 kg
[2021-08-02] VITALS (11 sets, daily range): BP systolic 134–185; BP diastolic 74–91; PULSE 96–103; TEMP 96.8
[2021-08-02 07:43] LABS: HEMOGLOBIN 10.8 g/dl (12.5-16.0); MEAN CELL VOLUME 90 fl (80.0-100.0); MEAN CORPUSCULAR HEMOGLOBIN 29 pg (27.0-31.0); MEAN CORPUSCULAR HGB CONC 32 g/dl (33.0-37.0); MEAN PLATELET VOLUME 9.8 fl (7.4-10.4); PLATELET COUNT 236 K/mm3 (130-400); RED BLOOD COUNT 3.72 M/mm3 (4.10-5.30); REDCELL DISTRIBUTION WIDTH-CV 13.5 % (11.5-14.5)
[2021-08-02 07:47] LABS: HEMATOCRIT 33.5 % (37.0-47.0)
[2021-08-02 07:51] LABS: PROTHROMBIN TIME 11.3 SECONDS (9.7-12.8)
[2021-08-02 07:54] LABS: PARTIAL THROMBOPLASTIN TIME 31.2 SECONDS (26.0-37.0)
[2021-08-02 07:59] LABS: CALCIUM 9.1 mg/dL (8.4-10.2); CREATININE, serum 3.83 mg/dL (0.57-1.11); POTASSIUM 4.3 mmol/L (3.5-4.5)
--- NOTE | 2021-08-02 10:00 | NUR ---
PT arrived back on unit, tele initiated, A&O x 3, very sleepy, awakes easily with verbal stimuli.
[2021-08-02] MEDS ORDERED: PREDNISONE20 MG PO (11:06)
--- NOTE | 2021-08-02 11:23 | NUR ---
Patient assisted to BR by occupational health nursing director and RN, tolerated well
--- NOTE | 2021-08-02 12:55 | NUR ---
2 ml air removed from R band in 5 min increments. No bleeding. band removed at 1230, with 4x4 and coband applied, IV dc'd intact. Pt changd into clothes and escorted from unit in wheelchair by RN, son at side.
== END 2021-08-02 12:55 | disposition home or self-care (01) ==
LOC: COL.CAR 06:39
PROVIDERS: Internal Medicine Cardiovascular Disease
DX: R94.39 Abnormal result of other cardiovascular function study (principal); I25.10 Atherosclerotic heart disease of native coronary artery without angina pectoris; I50.9 Heart failure, unspecified; N18.9 Chronic kidney disease, unspecified
CPT/HCPCS: C1769; J1200; J1644; J2250; J2930; J3010; Q9967

== ENCOUNTER 2021-09-03 09:33 | Emergency (ER) | payer MEDICARE, MEDICAID ==
[~2021-09-03] VITALS: Ht 160 cm; Wt 93.7 kg
[2021-09-03 10:06] VITALS: TEMP 98.5
[2021-09-03 10:43] LABS: BASO # 0.1 K/mm3 (0.0-0.2); BASO % 0.5 % (0.0-2.0); EOS # 0.5 K/mm3 (0.0-0.7); EOS % 4.5 % (0-4.0); GRAN # 8.3 K/mm3 (1.4-6.5); GRAN % 76.1 % (42.2-75.2); HEMATOCRIT 36.5 % (37.0-47.0); HEMOGLOBIN 11.8 g/dl (12.5-16.0); LYMPH # 1.2 K/mm3 (1.2-3.4); LYMPH % 11.2 % (20.0-51.0); MEAN CELL VOLUME 89 fl (80.0-100.0); MEAN CORPUSCULAR HEMOGLOBIN 29 pg (27.0-31.0); MEAN CORPUSCULAR HGB CONC 32 g/dl (33.0-37.0); MONO # 0.8 K/mm3 (0.1-0.6); MONO % 7.3 % (1.7-9.3); PLATELET COUNT 277 K/mm3 (130-400); REDCELL DISTRIBUTION WIDTH-CV 13.9 % (11.5-14.5)
[2021-09-03 10:43] LABS: COLLECTION METHOD CATHETER
[2021-09-03 10:49] LABS: PH 6 (5-8); SQUAMOUS EPITHELIAL 0-2 /hpf (0-10); URINE APPEARANCE Clear (CLEAR/HAZY); URINE BACTERIA None Seen (NONE SEEN); URINE BILIRUBIN Negative (NEGATIVE); URINE BLOOD Negative (NEGATIVE); URINE COLOR Straw (YELLOW); URINE GLUCOSE 3+ (NEGATIVE); URINE KETONE Negative (NEGATIVE); URINE LEUKOCYTE ESTERASE Negative (NEGATIVE); URINE NITRATE Negative (NEGATIVE); URINE PROTEIN(semi-quant) 2+ (NEGATIVE); URINE RBC 0-2 /hpf (0-2); URINE UROBILINOGEN Negative (NEGATIVE)
[2021-09-03 10:51] LABS: MUCOUS Present (NOT PRESENT)
[2021-09-03 10:58] LABS: TRICYCLIC ANTIDEPRESS URINE NEGATIVE
[2021-09-03 11:41] LABS: ALBUMIN 3.3 gm/dL (3.4-4.8); BILIRUBIN,TOTAL 0.4 mg/dL (0.2-1.2); C-REACTIVE PROTEIN 1.43 mg/dL (0.00-0.50); CALCIUM 9.3 mg/dL (8.4-10.2); CREATININE, serum 4.8 mg/dL (0.57-1.11); POTASSIUM 4.6 mmol/L (3.5-4.5); TOTAL PROTEIN 6.6 gm/dL (6.2-8.1)
[2021-09-03] MEDS ORDERED: LIDODERM 5% PATC1 EA TP (14:26)
[2021-09-03 17:06] VITALS: BP 145/85; PULSE 81
== END 2021-09-03 14:54 | disposition home or self-care (01) ==
LOC: COL.ER 09:33
PROVIDERS: Personal Emergency Response Attendant; Physician Assistant
DX: R07.81 Pleurodynia (principal); R10.10 Upper abdominal pain, unspecified; E11.65 Type 2 diabetes mellitus with hyperglycemia; F41.9 Anxiety disorder, unspecified; F31.9 Bipolar disorder, unspecified; I25.10 Atherosclerotic heart disease of native coronary artery without angina pectoris; I50.9 Heart failure, unspecified; Z99.2 Dependence on renal dialysis; Z79.02 Long term (current) use of antithrombotics/antiplatelets; Z79.82 Long term (current) use of aspirin; Z79.4 Long term (current) use of insulin; Z79.899 Other long term (current) drug therapy; W19.XXXA Unspecified fall, initial encounter
CPT/HCPCS: J1815

== ENCOUNTER 2021-09-24 06:16 | Emergency (ER) | payer MEDICARE, MEDICAID ==
[~2021-09-24] VITALS: Ht 160 cm; Wt 98.0 kg
[~2021-09-24 06:16] MED LIST changes: +LIDODERM 5% PATC1 EA TP
[2021-09-24 06:34] VITALS: BP 131/75; PULSE 94; TEMP 98.1
== END 2021-09-24 07:34 | disposition home or self-care (01) ==
LOC: COL.ER 06:16
DX: J06.9 Acute upper respiratory infection, unspecified (principal); I25.10 Atherosclerotic heart disease of native coronary artery without angina pectoris; I13.2 Hypertensive heart and chronic kidney disease with heart failure and with stage 5 chronic kidney disease, or end stage renal disease; N18.6 End stage renal disease; I50.9 Heart failure, unspecified; F31.9 Bipolar disorder, unspecified; F41.9 Anxiety disorder, unspecified; D63.1 Anemia in chronic kidney disease; E66.9 Obesity, unspecified; E11.22 Type 2 diabetes mellitus with diabetic chronic kidney disease; E11.40 Type 2 diabetes mellitus with diabetic neuropathy, unspecified; I25.2 Old myocardial infarction; Z99.2 Dependence on renal dialysis; Z20.822 Contact with and (suspected) exposure to COVID-19; Z87.891 Personal history of nicotine dependence; Z79.82 Long term (current) use of aspirin; Z79.4 Long term (current) use of insulin; Z79.02 Long term (current) use of antithrombotics/antiplatelets; Z79.899 Other long term (current) drug therapy; Z68.38 Body mass index [BMI] 38.0-38.9, adult

== ENCOUNTER 2021-10-10 07:40 | Emergency (ER) | payer MEDICARE, MEDICAID ==
[~2021-10-10] VITALS: Ht 160 cm; Wt 95.0 kg
[2021-10-10 07:49] VITALS: TEMP 97.7
[2021-10-10 08:40] LABS: BASO # 0.1 K/mm3 (0.0-0.2); BASO % 0.5 % (0.0-2.0); EOS # 0.5 K/mm3 (0.0-0.7); EOS % 4.7 % (0.0-4.0); GRAN # 7.8 K/mm3 (1.4-6.5); GRAN % 73.5 % (42.2-75.2); HEMATOCRIT 33.1 % (37.0-47.0); HEMOGLOBIN 10.9 g/dl (12.5-16.0); LYMPH # 1.4 K/mm3 (1.2-3.4); LYMPH % 13.1 % (20.0-51.0); MEAN CELL VOLUME 89 fl (80.0-100.0); MEAN CORPUSCULAR HEMOGLOBIN 29 pg (27-31); MEAN CORPUSCULAR HGB CONC 33 g/dl (33.0-37.0); MEAN PLATELET VOLUME 9.8 fl (7.4-10.4); MONO # 0.8 K/mm3 (0.1-0.6); MONO % 7.8 % (1.7-9.3); PLATELET COUNT 236 K/mm3 (130-400); RED BLOOD COUNT 3.72 M/mm3 (4.10-5.30); REDCELL DISTRIBUTION WIDTH-CV 13.5 % (11.5-14.5)
[2021-10-10 08:51] LABS: PROTHROMBIN TIME 11.5 SECONDS (9.7-12.8)
[2021-10-10 08:57] LABS: ALBUMIN 3.2 gm/dL (3.4-4.8); BILIRUBIN,TOTAL 0.6 mg/dL (0.2-1.2); CALCIUM 9.2 mg/dL (8.4-10.2); CREATININE, serum 4.93 mg/dL (0.57-1.11); MAGNESIUM 2.6 mg/dL (1.6-2.6); POTASSIUM 4.5 mmol/L (3.5-4.5); TOTAL PROTEIN 6.7 gm/dL (6.2-8.1)
[2021-10-10 09:14] LABS: TROPONIN-I 0.042 ng/mL (0.00-0.033)
[2021-10-10 11:56] VITALS: BP 124/75; PULSE 86
== END 2021-10-10 11:56 | disposition home or self-care (01) ==
LOC: COL.ER 07:40
PROVIDERS: Emergency Medicine
DX: E11.22 Type 2 diabetes mellitus with diabetic chronic kidney disease (principal); I13.2 Hypertensive heart and chronic kidney disease with heart failure and with stage 5 chronic kidney disease, or end stage renal disease; I50.9 Heart failure, unspecified; E11.42 Type 2 diabetes mellitus with diabetic polyneuropathy; N18.6 End stage renal disease; J44.9 Chronic obstructive pulmonary disease, unspecified; D63.1 Anemia in chronic kidney disease; E66.9 Obesity, unspecified; Z99.2 Dependence on renal dialysis; Z68.37 Body mass index [BMI] 37.0-37.9, adult; Z79.899 Other long term (current) drug therapy; Z79.4 Long term (current) use of insulin; Z20.822 Contact with and (suspected) exposure to COVID-19
CPT/HCPCS: J2270

== ENCOUNTER 2022-05-07 09:04 | Emergency (ER) | payer MEDICARE, MEDICAID ==
[~2022-05-07] VITALS: Ht 160 cm; Wt 97.1 kg
[2022-05-07 09:06] VITALS: TEMP 96.8
[2022-05-07 09:49] LABS: BASO % 0.3 % (0.0-2.0); EOS # 0.4 K/mm3 (0.0-0.7); EOS % 4.1 % (0.0-4.0); GRAN # 7.8 K/mm3 (1.4-6.5); GRAN % 80.4 % (42.2-75.2); LYMPH # 0.9 K/mm3 (1.2-3.4); LYMPH % 9.1 % (20.0-51.0); MEAN CELL VOLUME 90 fl (80.0-100.0); MEAN CORPUSCULAR HGB CONC 33 g/dl (33.0-37.0); MONO # 0.6 K/mm3 (0.1-0.6); MONO % 5.8 % (1.7-9.3); PLATELET COUNT 254 K/mm3 (130-400); RED BLOOD COUNT 3.38 M/mm3 (4.10-5.30); REDCELL DISTRIBUTION WIDTH-CV 12.9 % (11.5-14.5)
[2022-05-07 09:52] LABS: HEMATOCRIT 30.4 % (37.0-47.0); HEMOGLOBIN 9.9 g/dl (12.5-16.0); MEAN CORPUSCULAR HEMOGLOBIN 29 pg (27-31)
[2022-05-07 10:09] LABS: ALBUMIN 3.3 gm/dL (3.4-4.8); C-REACTIVE PROTEIN 3.69 mg/dL (0.00-0.50); CALCIUM 9.2 mg/dL (8.4-10.2); CREATININE, serum 3.97 mg/dL (0.57-1.11); POTASSIUM 3.9 mmol/L (3.5-4.5); TOTAL PROTEIN 7.2 gm/dL (6.2-8.1)
[2022-05-07 10:33] LABS: BILIRUBIN,TOTAL 0.4 mg/dL (0.2-1.2)
[2022-05-07 11:17] LABS: HEMATOCRIT 30.6 % (37.0-47.0)
[2022-05-07] MEDS ORDERED: PRILOSEC 20MG20 MG PO (11:47)
[2022-05-07 12:02] VITALS: BP 152/86; PULSE 89
== END 2022-05-07 12:06 | disposition home or self-care (01) ==
LOC: COL.ER 09:04
PROVIDERS: Family Medicine
DX: K92.0 Hematemesis (principal); I13.2 Hypertensive heart and chronic kidney disease with heart failure and with stage 5 chronic kidney disease, or end stage renal disease; E11.22 Type 2 diabetes mellitus with diabetic chronic kidney disease; N18.6 End stage renal disease; I50.9 Heart failure, unspecified; E66.9 Obesity, unspecified; Z68.37 Body mass index [BMI] 37.0-37.9, adult; Z99.2 Dependence on renal dialysis; Z20.822 Contact with and (suspected) exposure to COVID-19; Z79.02 Long term (current) use of antithrombotics/antiplatelets; X50.0XXA Overexertion from strenuous movement or load, initial encounter
CPT/HCPCS: C9113; J2405

== ENCOUNTER 2022-11-04 17:15 | Inpatient (IN) | payer MEDICARE, MEDICAID ==
[~2022-11-04] VITALS: Ht 160 cm; Wt 100.6 kg
[~2022-11-04 17:15] MED LIST changes: +PRILOSEC 20MG20 MG PO
[2022-11-04 18:33] LABS: BASO % 0.4 % (0.0-2.0); EOS # 0.5 K/mm3 (0.0-0.7); EOS % 4.2 % (0.0-4.0); GRAN # 8.8 K/mm3 (1.4-6.5); GRAN % 79.7 % (42.2-75.2); HEMOGLOBIN 11.5 g/dl (12.5-16.0); LYMPH # 1.1 K/mm3 (1.2-3.4); LYMPH % 9.6 % (20.0-51.0); MEAN CELL VOLUME 90 fl (80.0-100.0); MEAN CORPUSCULAR HEMOGLOBIN 31 pg (27-31); MEAN CORPUSCULAR HGB CONC 34 g/dl (33.0-37.0); MEAN PLATELET VOLUME 10.6 fl (7.4-10.4); MONO # 0.6 K/mm3 (0.1-0.6); MONO % 5.6 % (1.7-9.3); PLATELET COUNT 254 K/mm3 (130-400); RED BLOOD COUNT 3.76 M/mm3 (4.10-5.30); REDCELL DISTRIBUTION WIDTH-CV 13.1 % (11.5-14.5)
[2022-11-04 18:49] LABS: ALBUMIN 3.3 gm/dL (3.4-4.8); BILIRUBIN,TOTAL 0.4 mg/dL (0.2-1.2); C-REACTIVE PROTEIN 1.72 mg/dL (0.00-0.50); CALCIUM 9.3 mg/dL (8.4-10.2); CREATININE, serum 4.58 mg/dL (0.57-1.11); POTASSIUM 4.3 mmol/L (3.5-4.5); TOTAL PROTEIN 7.4 gm/dL (6.2-8.1)
[2022-11-04 18:55] LABS: TROPONIN-I 0.024 ng/mL (0.00-0.033)
[2022-11-04 19:13] LABS: COLLECTION METHOD CLEAN CATCH
[2022-11-04 19:31] LABS: PH 6.5 (5-8); URINE APPEARANCE Cloudy (CLEAR/HAZY); URINE BACTERIA Rare /hpf (NONE SEEN); URINE BLOOD TRACE-INTACT (NEGATIVE); URINE COLOR Yellow (YELLOW); URINE GLUCOSE 3+ (NEGATIVE); URINE KETONE Negative (NEGATIVE); URINE NITRATE Negative (NEGATIVE); URINE PROTEIN(semi-quant) 3+ (NEGATIVE); URINE RBC 0-2 /hpf (0-2); URINE UROBILINOGEN 0.2 (NEGATIVE)
[2022-11-04 19:39] LABS: TRICYCLIC ANTIDEPRESS URINE NEGATIVE
[2022-11-04 20:25] VITALS: BP 133/56; PULSE 77; TEMP 97.9
[2022-11-04 23:19] VITALS: BP 140/65; PULSE 80; TEMP 98.4
[2022-11-05 04:55] VITALS: BP 130/64; PULSE 74; TEMP 98.4
[2022-11-05 07:44] VITALS: BP 112/58; PULSE 78; TEMP 98.3
[2022-11-05 10:30] LABS: BASO % 0.5 % (0.0-2.0); EOS # 0.5 K/mm3 (0.0-0.7); EOS % 6.2 % (0.0-4.0); GRAN # 5.4 K/mm3 (1.4-6.5); GRAN % 69.2 % (42.2-75.2); HEMOGLOBIN 11.2 g/dl (12.5-16.0); LYMPH # 1.2 K/mm3 (1.2-3.4); LYMPH % 14.9 % (20.0-51.0); MEAN CELL VOLUME 92 fl (80.0-100.0); MEAN CORPUSCULAR HEMOGLOBIN 31 pg (27-31); MEAN CORPUSCULAR HGB CONC 33 g/dl (33.0-37.0); MONO # 0.7 K/mm3 (0.1-0.6); MONO % 8.8 % (1.7-9.3); PLATELET COUNT 233 K/mm3 (130-400); RED BLOOD COUNT 3.65 M/mm3 (4.10-5.30); REDCELL DISTRIBUTION WIDTH-CV 13.1 % (11.5-14.5)
[2022-11-05 10:31] LABS: HEMATOCRIT 33.6 % (37.0-47.0)
[2022-11-05 10:42] LABS: ALBUMIN 3.1 gm/dL (3.4-4.8); CREATININE, serum 5.91 mg/dL (0.57-1.11); PHOSPHOROUS 5.6 mg/dL (2.3-4.7); POTASSIUM 4.2 mmol/L (3.5-4.5)
[2022-11-05 12:02] VITALS: BP 110/46; PULSE 77; TEMP 97.6
[2022-11-05 16:29] VITALS: BP 108/48; PULSE 78; TEMP 97.6
[2022-11-05 20:03] VITALS: BP 124/58; PULSE 85; TEMP 98.3
[2022-11-05 23:40] VITALS: BP 133/63; PULSE 87; TEMP 98.5
[2022-11-06 03:51] VITALS: BP 130/57; PULSE 80; TEMP 97.8
[2022-11-06 06:29] LABS: BASO % 0.4 % (0.0-2.0); EOS # 0.4 K/mm3 (0.0-0.7); EOS % 5.9 % (0.0-4.0); GRAN # 4.3 K/mm3 (1.4-6.5); GRAN % 60.2 % (42.2-75.2); HEMOGLOBIN 10.5 g/dl (12.5-16.0); LYMPH # 1.6 K/mm3 (1.2-3.4); LYMPH % 22.3 % (20.0-51.0); MEAN CELL VOLUME 95 fl (80.0-100.0); MEAN CORPUSCULAR HEMOGLOBIN 30 pg (27-31); MEAN CORPUSCULAR HGB CONC 32 g/dl (33.0-37.0); MEAN PLATELET VOLUME 10.2 fl (7.4-10.4); MONO # 0.8 K/mm3 (0.1-0.6); MONO % 10.9 % (1.7-9.3); PLATELET COUNT 222 K/mm3 (130-400); RED BLOOD COUNT 3.45 M/mm3 (4.10-5.30)
[2022-11-06 06:30] LABS: HEMATOCRIT 32.6 % (37.0-47.0)
[2022-11-06 06:52] LABS: CALCIUM 9.4 mg/dL (8.4-10.2); CREATININE, serum 6.46 mg/dL (0.57-1.11); PHOSPHOROUS 5.9 mg/dL (2.3-4.7); POTASSIUM 4.3 mmol/L (3.5-4.5)
[2022-11-06 07:44] VITALS: BP 99/58; PULSE 73; TEMP 97.9
[2022-11-06 15:51] VITALS: BP 122/57; PULSE 82; TEMP 97.7
[2022-11-06 20:01] VITALS: BP 106/47; PULSE 87; TEMP 98.9
[2022-11-06 23:29] VITALS: BP 95/49; PULSE 80; TEMP 98.1
[2022-11-07 04:09] VITALS: BP 102/53; PULSE 82; TEMP 97.8
[2022-11-07 07:04] LABS: BASO % 0.6 % (0.0-2.0); EOS # 0.4 K/mm3 (0.0-0.7); EOS % 5.5 % (0.0-4.0); GRAN # 4.1 K/mm3 (1.4-6.5); GRAN % 60.6 % (42.2-75.2); HEMOGLOBIN 10.4 g/dl (12.5-16.0); LYMPH # 1.6 K/mm3 (1.2-3.4); LYMPH % 23.3 % (20.0-51.0); MEAN CELL VOLUME 92 fl (80.0-100.0); MEAN CORPUSCULAR HEMOGLOBIN 30 pg (27-31); MEAN CORPUSCULAR HGB CONC 33 g/dl (33.0-37.0); MEAN PLATELET VOLUME 10.4 fl (7.4-10.4); MONO # 0.7 K/mm3 (0.1-0.6); MONO % 9.7 % (1.7-9.3); PLATELET COUNT 214 K/mm3 (130-400); RED BLOOD COUNT 3.42 M/mm3 (4.10-5.30); REDCELL DISTRIBUTION WIDTH-CV 13.2 % (11.5-14.5)
[2022-11-07 07:10] LABS: HEMATOCRIT 31.4 % (37.0-47.0)
[2022-11-07 07:15] LABS: ALBUMIN 2.9 gm/dL (3.4-4.8); CALCIUM 9.5 mg/dL (8.4-10.2); CREATININE, serum 5.03 mg/dL (0.57-1.11); PHOSPHOROUS 5.4 mg/dL (2.3-4.7); POTASSIUM 4.1 mmol/L (3.5-4.5)
[2022-11-07 07:38] VITALS: BP 109/42; PULSE 71; TEMP 97.6
[2022-11-07 12:40] VITALS: BP 118/49; PULSE 78; TEMP 98.2
[2022-11-07 16:00] VITALS: BP 99/59; PULSE 85; TEMP 98.2
[2022-11-07 19:48] VITALS: BP 103/54; PULSE 82; TEMP 98.2
[2022-11-08] VITALS (7 sets, daily range): BP systolic 108–122; BP diastolic 48–60; PULSE 85–99; TEMP 98.1–99.1
[2022-11-08 06:42] LABS: BASO # 0.1 K/mm3 (0.0-0.2); BASO % 0.5 % (0.0-2.0); EOS # 0.4 K/mm3 (0.0-0.7); GRAN # 8.7 K/mm3 (1.4-6.5); GRAN % 81.2 % (42.2-75.2); HEMOGLOBIN 10.6 g/dl (12.5-16.0); LYMPH # 0.9 K/mm3 (1.2-3.4); LYMPH % 8.1 % (20.0-51.0); MEAN CELL VOLUME 95 fl (80.0-100.0); MEAN CORPUSCULAR HEMOGLOBIN 31 pg (27-31); MEAN CORPUSCULAR HGB CONC 33 g/dl (33.0-37.0); MEAN PLATELET VOLUME 10.7 fl (7.4-10.4); MONO # 0.6 K/mm3 (0.1-0.6); MONO % 5.7 % (1.7-9.3); PLATELET COUNT 212 K/mm3 (130-400); RED BLOOD COUNT 3.42 M/mm3 (4.10-5.30); REDCELL DISTRIBUTION WIDTH-CV 13.1 % (11.5-14.5)
[2022-11-08 06:45] LABS: HEMATOCRIT 32.6 % (37.0-47.0)
[2022-11-08 06:59] LABS: CREATININE, serum 4.63 mg/dL (0.57-1.11); PHOSPHOROUS 4.6 mg/dL (2.3-4.7); POTASSIUM 4.3 mmol/L (3.5-4.5)
[2022-11-09 03:26] VITALS: BP 110/56; PULSE 88; TEMP 98.4
[2022-11-09 06:17] LABS: BASO % 0.3 % (0.0-2.0); EOS # 0.4 K/mm3 (0.0-0.7); EOS % 3.9 % (0.0-4.0); GRAN # 8.7 K/mm3 (1.4-6.5); GRAN % 76.3 % (42.2-75.2); HEMOGLOBIN 10.5 g/dl (12.5-16.0); LYMPH # 1.5 K/mm3 (1.2-3.4); LYMPH % 13.3 % (20.0-51.0); MEAN CELL VOLUME 92 fl (80.0-100.0); MEAN CORPUSCULAR HEMOGLOBIN 30 pg (27-31); MEAN CORPUSCULAR HGB CONC 33 g/dl (33.0-37.0); MEAN PLATELET VOLUME 10.3 fl (7.4-10.4); MONO # 0.7 K/mm3 (0.1-0.6); MONO % 5.7 % (1.7-9.3); PLATELET COUNT 213 K/mm3 (130-400); RED BLOOD COUNT 3.46 M/mm3 (4.10-5.30); REDCELL DISTRIBUTION WIDTH-CV 13.1 % (11.5-14.5)
[2022-11-09 06:22] LABS: HEMATOCRIT 31.8 % (37.0-47.0)
[2022-11-09 06:35] LABS: ALBUMIN 2.9 gm/dL (3.4-4.8); C-REACTIVE PROTEIN 8.01 mg/dL (0.00-0.50); CALCIUM 9.6 mg/dL (8.4-10.2); CREATININE, serum 6.23 mg/dL (0.57-1.11); PHOSPHOROUS 5.1 mg/dL (2.3-4.7); POTASSIUM 4.3 mmol/L (3.5-4.5)
[2022-11-09 07:28] VITALS: BP 116/55; PULSE 81; TEMP 98.1
[2022-11-09 11:19] VITALS: BP 104/54; PULSE 87; TEMP 98.3
[2022-11-09 15:29] VITALS: BP 108/49; PULSE 97; TEMP 97.4
[2022-11-09 20:58] VITALS: BP 130/54; PULSE 101; TEMP 98.4
[2022-11-09 23:55] VITALS: BP 118/55; PULSE 88; TEMP 98
[2022-11-10 03:29] VITALS: BP 126/59; PULSE 96; TEMP 98.5
[2022-11-10 07:42] VITALS: BP 122/64; PULSE 92; TEMP 98
[2022-11-10 12:40] VITALS: BP 118/66; PULSE 90; TEMP 98
[2022-11-10 15:49] VITALS: BP 122/59; TEMP 98
[2022-11-10 20:19] VITALS: BP 110/52; PULSE 93; TEMP 98.7
[2022-11-10 23:28] VITALS: BP 107/55; PULSE 98; TEMP 98.9
[2022-11-11 03:30] VITALS: BP 126/60; PULSE 81; TEMP 97.9
[2022-11-11 08:06] VITALS: BP 129/57; PULSE 88; TEMP 97.8
[2022-11-11] MEDS ORDERED: TRELEGY ELLIPT1 EACH IH ×2 (10:29→10:33)
[2022-11-11] MEDS ORDERED: DOXYCYCLINE HY100 MG (10:34)
[2022-11-11] MEDS ORDERED: DOXYCYCLINE HY100 MG PO (10:34)
[2022-11-11 12:55] VITALS: BP 116/50; PULSE 79; TEMP 98.8
[2022-11-11] MEDS ORDERED: PLAVIX 75MG TAB75 MG PO (14:49)
[2022-11-11] MEDS ORDERED: ASPIRIN E.C. 8181 MG PO (14:49)
[2022-11-11] MEDS ORDERED: LIPITOR20 MG PO (14:49)
[2022-11-11] MEDS ORDERED: PRILOSEC 20MG20 MG PO (14:49)
[2022-11-11] MEDS ORDERED: SINGULAIR 110 MG/TAB PO (14:49)
[2022-11-11] MEDS ORDERED: NITROSTAT0.4 MG/TAB SL (14:49)
[2022-11-11] MEDS ORDERED: PROAIR HFA0.09 MG/AC IH (14:49)
[2022-11-11] MEDS ORDERED: INCRUSE EL62.5 MCG/A IH (14:49)
[2022-11-11] MEDS ORDERED: NOVOLOG 100U100 U/M1 SQ (14:50)
== END 2022-11-11 15:30 | disposition home or self-care (01) | DRG 193 ==
LOC: COL.ER 17:15 → MEDICAL 19:08
PROVIDERS: Emergency Medicine; Family Medicine; Registered Nurse; ADMIT Internal Medicine Nephrology
PROC: 5A1D70Z Performance of Urinary Filtration, Intermittent, Less than 6 Hours Per Day (ICD-10-PCS; principal; 2022-11-06)
DX: J18.9 Pneumonia, unspecified organism (principal); J96.01 Acute respiratory failure with hypoxia; N18.6 End stage renal disease; I13.2 Hypertensive heart and chronic kidney disease with heart failure and with stage 5 chronic kidney disease, or end stage renal disease; I25.10 Atherosclerotic heart disease of native coronary artery without angina pectoris; E66.9 Obesity, unspecified; D63.1 Anemia in chronic kidney disease; F19.10 Other psychoactive substance abuse, uncomplicated; I95.9 Hypotension, unspecified; G89.29 Other chronic pain; E11.22 Type 2 diabetes mellitus with diabetic chronic kidney disease; E11.42 Type 2 diabetes mellitus with diabetic polyneuropathy; F31.9 Bipolar disorder, unspecified; F41.9 Anxiety disorder, unspecified; Z20.822 Contact with and (suspected) exposure to COVID-19; F15.90 Other stimulant use, unspecified, uncomplicated; I50.9 Heart failure, unspecified; J44.9 Chronic obstructive pulmonary disease, unspecified; Z95.5 Presence of coronary angioplasty implant and graft; Z90.710 Acquired absence of both cervix and uterus; Z99.2 Dependence on renal dialysis; I25.2 Old myocardial infarction; Z88.8 Allergy status to other drugs, medicaments and biological substances; Z91.041 Radiographic dye allergy status; Z79.4 Long term (current) use of insulin; Z79.82 Long term (current) use of aspirin; Z79.02 Long term (current) use of antithrombotics/antiplatelets; Z86.16 Personal history of COVID-19; Z87.891 Personal history of nicotine dependence; Z68.37 Body mass index [BMI] 37.0-37.9, adult; Z23 Encounter for immunization
CPT/HCPCS: J0456; J0696; J1644; J1815; J2405; J7030; J7050; Q5105

== ENCOUNTER → 2023-02-05 | Outpatient (CLI) | payer MEDICARE, MEDICAID ==
[~2023-02-05] MED LIST changes: +DOXYCYCLINE HY100 MG; +DOXYCYCLINE HY100 MG PO; +TRELEGY ELLIPT1 EACH IH
== END ==
LOC: COL.PUL 02-04 13:00
DX: R06.02 Shortness of breath (principal)
CPT/HCPCS: J7674

== ENCOUNTER → 2023-06-10 | Outpatient (CLI) | payer MEDICARE, MEDICAID ==
[~2023-06-10] VITALS: Ht 162.6 cm; Wt 100.4 kg
[~2023-06-10] MED LIST changes: +AMOXICILLIN/CLA1 TA1 PO; +B-121000 MCG PO; +LAMICTAL 100MG100 MG PO; +LANTUS SOLOS100 U/ML SQ; +PERCOCET 325 MG1 TA2 PO; +THIAMINE 1100 MG/TAB PO
[2023-06-10 08:45] VITALS: BP 153/74; PULSE 80; TEMP 97.4
--- NOTE | 2023-06-10 09:25 | NUR ---
pt had no fluid. she leaves independently.
== END ==
LOC: COL.RAD 08:09
DX: R18.8 Other ascites (principal)

== ENCOUNTER 2024-04-07 07:41 | Day surgery (SDC) | payer MEDICARE ==
[~2024-04-07] VITALS: Ht 160 cm; Wt 94.4 kg
[~2024-04-07 07:41] MED LIST changes: +CEPHALEXIN500 M1 PO; +LIPITOR 80MG80 MG PO; +LOPRESSOR 225 MG/TAB PO; +NOVLOG SQ; +OMNICEF 300MG300 MG PO; +PREDNISONE10 MG PO
[2024-04-07 08:39] LABS: CALCIUM 9.4 mg/dL (8.4-10.2); CREATININE, serum 4.95 mg/dL (0.57-1.11); POTASSIUM 4.8 mEq/L (3.5-4.5)
[2024-04-07] MEDS ORDERED: NS 1,000 ML IV SCH (08:45)
[2024-04-07] MEDS ORDERED: Vecuronium 10 MG VIAL IV ONE (09:46)
[2024-04-07 09:54] VITALS: BP 122/71; PULSE 99; TEMP 97.4
[2024-04-07] MEDS ORDERED: fentaNYL 50 MCG/ML 2 ML VIAL ONE ×2 (09:54→10:46)
[2024-04-07] MEDS ORDERED: Lidocaine PF 2% (20 MG/ML) 5 ML VIAL ONE (09:55)
--- NOTE | 2024-04-07 10:01 | NUR ---
PATIENT WAS ADMITTED TO [facility] AND ORIENTED TO ROOM. CONSENTS SIGNED FOR SURGERY. ROOM AIR SATS FLUCTATE BETWEEN 90-95%. STATES USES OXYGEN AT NIGHT AND PRN DURING THE DAY DEPENDING ON ACTIVITY. IV STARTED AND LAB DRAWN ORDERED. ORDER RECEIVED FOR NORMAL SALINE AND ACCUCHECK REPORTED TO GREYSON HORVATH TECHNICAL SUPPORT MANAGER OF 278. NO ORDERS. PATIENT POOR HISTORIAN FOR MEDICATION VERIFICATION. STATES STOPPED TAKING MOST OF HER MEDICATIONS AND HAS NOT HAD ANY INSULIN FOR OVER 2 DAYS. DAUGHTER IN ROOM WHO WILL BE ASSISTING HER WITH HOME DIALYSIS. CALL LIGHT IN REACH.
[2024-04-07] MEDS ORDERED: dexAMETHasone 10 MG/ML VIAL ONE (10:11)
[2024-04-07] MEDS ORDERED: Ondansetron 4 MG/2 ML VIAL ONE (10:11)
[2024-04-07] MEDS ORDERED: Glycopyrrolate 0.2 MG/ML 1 ML VIAL ONE (10:17)
[2024-04-07] MEDS ORDERED: Ondansetron 4 MG/2 ML VIAL IV PRN ×2 (10:30→10:45)
[2024-04-07] MEDS ORDERED: Meperidine 50 MG/ML 1 ML VIAL IV PRN (10:30)
[2024-04-07] MEDS ORDERED: fentaNYL 50 MCG/ML 1 ML SYRINGE/VIAL [PACU/SDC ONLY] IV PRN (10:30)
[2024-04-07] MEDS ORDERED: HYDROmorphone 1 MG/1 ML SYRINGE [PACU/SDC ONLY] IV PRN (10:30)
[2024-04-07] MEDS ORDERED: Acetaminophen 325 MG TAB PO PRN (10:45)
[2024-04-07 11:07] VITALS: TEMP 97.2
[2024-04-07] MEDS ORDERED: Topical Skin Adhesive 1 EACH (1 ML) TOP ONE (11:16)
--- NOTE | 2024-04-07 11:30 | NUR ---
PATIENT RETURNS TO ROOM 7 PER CART FROM PACU ACCOMPANIED BY NAVNEET PELAYO. PATIENT AROUSES TO VERBAL STIMULI. TEMP 96.9. SATS 99% ON 2L PER N/C. DRESSING CLEAN AND DRY ON PERTIONEAL DIALYSIS CATHETER INSERTION SITE. SKIN GLUE COVERING SITES X3. TEMP 96.9. DAUGHTER IN ROOM. SIDERAILS UP X2. ALLOWED TO REST.
[2024-04-07 11:36] VITALS: BP 133/64; PULSE 85
--- NOTE | 2024-04-07 11:45 | NUR ---
CONTINUES TO REST WITH EYES CLOSED AND RESPONDS TO VERBAL STIMULI. SATS 96% ON 2L. CALL LIGHT IN REACH.
--- NOTE | 2024-04-07 12:00 | NUR ---
119/64, 81, 16. SATS 99% ON 2L. DRESSING REMAINS CLEAN AND DRY ON ABDOMEN. RESPONDS TO VERBAL STIMULI.
--- NOTE | 2024-04-07 12:15 | NUR ---
AWAKE NOW AND SIPPING ON SPRITE. DENIES PAIN OR NAUSEA.
--- NOTE | 2024-04-07 12:30 | NUR ---
AWAKE AND SITTING UP EATING DIET PUDDING. DENIES PAIN OR NAUSEA. SAT UP ON EDGE OF BED TO DRESS. NOTED SEROUS DRAINAGE FROM THE MID ABDOMINAL INCISION. PRESSURE DRESSING APPLIED AND DRAINAGE SUBSIDED. INSTRUCTED DAUGHTER AND PATIENT TO CONTINUE TO MONITOR AND REPORT ANY FURTHER DRAINAGE. DISCHARGE INSTRUCTIONS GIVEN AND SIGNED. INSTRUCTED TO TAKE PAIN MEDICATIONS THAT SHE HAS PRESCRIBED AT HOME AND SUPPLEMENT WITH TYLENOL IF NEEDED. VOICES UNDERSTANDING OF HOME CARES AND FOLLOW UP SCHEDULED.
== END 2024-04-07 13:00 | disposition home or self-care (01) ==
LOC: SDCO 07:41
PROVIDERS: Surgery
DX: I13.2 Hypertensive heart and chronic kidney disease with heart failure and with stage 5 chronic kidney disease, or end stage renal disease (principal); E11.22 Type 2 diabetes mellitus with diabetic chronic kidney disease; N18.6 End stage renal disease; I50.9 Heart failure, unspecified; E66.9 Obesity, unspecified; Z68.37 Body mass index [BMI] 37.0-37.9, adult; Z79.82 Long term (current) use of aspirin; Z79.4 Long term (current) use of insulin; Z79.02 Long term (current) use of antithrombotics/antiplatelets; Z87.891 Personal history of nicotine dependence; Z86.718 Personal history of other venous thrombosis and embolism
CPT/HCPCS: C1750; J0690; J1100; J2405; J2704; J3010; J7030

== ENCOUNTER → 2024-05-04 | Outpatient (CLI) | payer MEDICARE | LOC: COL.RAD 10:19 | DX: T85.611A Breakdown (mechanical) of intraperitoneal dialysis catheter, initial encounter (principal); M47.816 Spondylosis without myelopathy or radiculopathy, lumbar region; M47.814 Spondylosis without myelopathy or radiculopathy, thoracic region; I70.90 Unspecified atherosclerosis ==